=== PATIENT | male | born 1980 | race Hispanic/Latino ===

== ENCOUNTER 2016-09-23 00:27 | Emergency (ER) | payer OTHER ==
[2016-09-23 00:39] VITALS: BP 112/77; PULSE 104; RESP 18; TEMP 98.2; O2SAT 95
[2016-09-23] MEDS ORDERED: Amoxicillin-Clav 875-125 mg Tab PO STA (00:49)
--- NOTE | 2016-09-23 00:52 | C.PDOC ---
History Of Present Illness 35 year old patient presents to the ED complaining of cough, nasal congestion and frontal headache for the past 2 weeks. Patient notes he coughs up green mucus. Patient tried an OTC nasal spray with no relief. Patient denies fever. Time Seen by Provider: 09/23/16 00:44 Chief Complaint (Nursing): Cough, Cold, Congestion History Per: Patient History/Exam Limitations: no limitations Onset/Duration Of Symptoms: Other (2 weeks) Current Symptoms Are (Timing): Still Present Location Of Pain: Headache Sick Contacts (Context): None Associated Symptoms: Cough, Nasal Congestion Ear Symptoms: Bilateral: None Severity: Mild Pain Scale Rating Of: 3 Recent travel outside of the [place]: No Past Medical History Reviewed: Historical Data, Nursing Documentation, Vital Signs Vital Signs: Last Vital Signs Temp 98.2 F 09/23/16 00:36 Pulse 104 H 09/23/16 00:36 Resp 18 09/23/16 00:36 BP 112/77 09/23/16 00:36 Pulse Ox 95 09/23/16 01:15 - Medical History PMH: CHF, Crohn's Disease, HTN, Migraine Surgical History: Pacemaker Family History: States: Unknown Family Hx - Social History Hx Tobacco Use: Yes Hx Alcohol Use: Yes Hx Substance Use: No - Immunization History Hx Tetanus Toxoid Vaccination: No Hx Influenza Vaccination: No Hx Pneumococcal Vaccination: No Review Of Systems Except As Marked, All Systems Reviewed And Found Negative. Constitutional: Negative for: Fever ENT: Positive for: Nose Congestion Respiratory: Positive for: Cough (with green mucus) Neurological: Positive for: Headache (frontal) Physical Exam - Physical Exam Appears: Non-toxic, No Acute Distress Skin: Warm, Dry Head: Atraumatic, Normacephalic Eye(s): bilateral: Normal Inspection Ear(s): Bilateral: Normal Nose: Other (nasal congestion) Oral Mucosa: Moist Throat: Normal, No Erythema Neck: Normal ROM, Supple Chest: Symmetrical Cardiovascular: Rhythm Regular Respiratory: Normal Breath Sounds, No Rales, No Rhonchi, No Wheezing, Other ( speaking in clear sentences) Back: Normal Inspection Extremity: Bilateral: Atraumatic Neurological/Psych: Oriented x3, Normal Speech, Normal Cognition Gait: Steady ED Course And Treatment O2 Sat by Pulse Oximetry: 95 (room air) Pulse Ox Interpretation: Normal Medical Decision Making Medical Decision Making: Impression: 35 y/o with cold-like symptoms Plan: * Sudafed * Augmentin Progress: Patient remained afebrile alert and oriented with stable vital signs during ER evaluation. On re-examination, patient is resting comfortably in no acute distress. Patient reports improvement of symptoms. Disposition Counseled Patient/Family Regarding: Need For Followup, Rx Given - Disposition Disposition: HOME/ ROUTINE Disposition Time: 00:49 Condition: STABLE Additional Instructions: Follow up with your primary medical doctor or clinic in 2-5 days for further evaluation. Take medications as prescribed. Return to the emergency department at any time if symptoms persist or worsen. 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 - Scribe Statement The provider has reviewed the documentation as recorded by the Scribe Oxana Foreman All medical record entries made by the Scribe were at my direction and personally dictated by me. I have reviewed the chart and agree that the record accurately reflects my personal performance of the history, physical exam, medical decision making, and the department course for this patient. I have also personally directed, reviewed, and agree with the discharge instructions and disposition.
[2016-09-23] MEDS ORDERED: Amoxicillin-Clav 875-125 mg Tab PO ONE (00:54)
== END 2016-09-23 01:01 | disposition home or self-care (01) ==
LOC: C.ER 00:27
DX: J32.9 Chronic sinusitis, unspecified (principal); Z72.0 Tobacco use

== ENCOUNTER 2017-02-08 23:50 | Emergency (ER) | payer MEDICAID, OTHER ==
[2017-02-09 00:30] VITALS: O2SAT 98
[2017-02-09] MEDS ORDERED: Albuterol-Ipratrop 3 mg / 0.5 (3 ml) UD IH STA (00:57)
[2017-02-09] MEDS ORDERED: Albuterol-Ipratrop 3 mg / 0.5 (3 ml) UD ONE (01:05)
[2017-02-09 01:30] LABS: BASO # 0.1 K/uL (0.0-0.2); BASO % 0.9 % (0.0-2.0); EOS # 0.6 K/uL (0.0-0.7); EOS % 3.7 % (0.0-4.0); HEMATOCRIT 37.4 % (35.0-51.0); LYMPH # 2.9 K/uL (1.0-4.3); MEAN CELL VOLUME 86.8 fL (80.0-94.0); MEAN CORPUSCULAR HEMOGLOBIN 29.1 pg (27.0-31.0); MEAN CORPUSCULAR HGB CONC 33.5 g/dL (33.0-37.0); MEAN PLATELET VOLUME 8.9 fL (7.2-11.7); MONO # 1.2 K/uL (0.0-0.8); RED CELL DISTRIBUTION WIDTH 13.4 % (11.5-14.5); WHITE BLOOD COUNT 15.4 K/uL (4.8-10.8)
[2017-02-09 01:42] LABS: CHLORIDE 99 mmol/L (98-107); SODIUM 135 mmol/L (132-148)
[2017-02-09 01:43] LABS: POTASSIUM 3.6 mmol/L (3.6-5.2)
[2017-02-09 01:44] LABS: GFR AFRICAN-AMERICAN > 60
[2017-02-09 01:45] LABS: ALB/GLOB RATIO 0.9 (1.0-2.1); ALKALINE PHOSPHATASE 93 U/L (38-126); ALT/SGPT 43 U/L (21-72); AST/SGOT 19 U/L (17-59); BILIRUBIN,TOTAL 0.7 mg/dL (0.2-1.3); BLOOD UREA NITROGEN 12 mg/dL (9-20); CARBON DIOXIDE 26 mmol/L (22-30); GLUCOSE,RANDOM 99 mg/dL (75-110); TOTAL PROTEIN 8.1 g/dL (6.3-8.3)
[2017-02-09 01:46] LABS: CALCIUM 8.8 mg/dl (8.6-10.4)
--- NOTE | 2017-02-09 03:36 | C.PDOC ---
Time Seen by Provider: 02/09/17 00:41 Chief Complaint (Nursing): Cough, Cold, Congestion History Per: Patient Onset/Duration Of Symptoms: Days (about 1 week) Current Symptoms Are (Timing): Still Present Initiating Event: Upper Respiratory Illness Current Respiratory Medications: See Home Med List Severity: Moderate Associated Symptoms: Productive Cough, Ankle/Leg Swelling Recent travel outside of the [place]: No Additional History Per: Prior Records Past Medical History Reviewed: Historical Data, Nursing Documentation, Vital Signs Vital Signs: Last Vital Signs Temp 98 F 02/09/17 02:55 Pulse 91 H 02/09/17 02:55 Resp 16 02/09/17 02:55 BP 110/58 L 02/09/17 02:55 Pulse Ox 98 02/09/17 02:55 - Medical History PMH: CHF, Crohn's Disease, HTN, Migraine Surgical History: Pacemaker Family History: States: Unknown Family Hx - Social History Hx Tobacco Use: Yes Hx Alcohol Use: No Hx Substance Use: No - Immunization History Hx Tetanus Toxoid Vaccination: No Hx Influenza Vaccination: No Hx Pneumococcal Vaccination: No Review Of Systems Except As Marked, All Systems Reviewed And Found Negative. Constitutional: Negative for: Fever ENT: Positive for: Nose Congestion, Throat Pain Cardiovascular: Negative for: Chest Pain Respiratory: Positive for: Cough, Shortness of Breath, Sputum. Negative for: Hemoptysis Gastrointestinal: Negative for: Vomiting, Abdominal Pain Musculoskeletal: Negative for: Neck Pain Skin: Negative for: Rash Neurological: Negative for: Weakness, Numbness, Seizures Physical Exam - Physical Exam Appears: Non-toxic, No Acute Distress Skin: Normal Color, Warm, Dry, No Rash Head: Atraumatic, Normacephalic Eye(s): bilateral: PERRL, EOMI Neck: Normal ROM, Supple Cardiovascular: Rhythm Regular Respiratory: No Accessory Muscle Use, Wheezing (mild scattered) Gastrointestinal/Abdominal: Soft, No Tenderness Back: No CVA Tenderness Extremity: Normal ROM, Pedal Edema, No Calf Tenderness Extremity: Bilateral: Normal Color And Temperature Neurological/Psych: Oriented x3, Normal Motor, Normal Sensation ED Course And Treatment - Laboratory Results Result Diagrams: 02/09/17 01:22 02/09/17 01:22 ECG: Interpreted By Me, Viewed By Me ECG Rhythm: AV Paced, Nonspecific Changes Rate From EC O2 Sat by Pulse Oximetry: 98 Pulse Ox Interpretation: Normal - Radiology CXR: Interpreted by Me, Viewed By Me CXR Interpretation: Yes: No Acute Disease Reassessment Condition: Improved Disposition Counseled Patient/Family Regarding: Studies Performed, Diagnosis, Need For Followup, Rx Given, Smoking Cessation - Disposition Disposition: HOME/ ROUTINE Disposition Time: 03:38 Condition: IMPROVED Additional Instructions: Follow up with your doctor this week for further evaluation and treatment. Return to the ER if you develop fever, shortness of breath, chest pain, worsening of symptoms or if you have any other concerns. Prescriptions: Albuterol HFA [Ventolin HFA 90 mcg/actuation (8 g)] 2 puff IH Q4 PRN #1 unit PRN Reason: Wheezing Azithromycin [Zithromax] 1 dose PO DAILY #1 pkt Instructions: Acute Bronchitis (ED) - Clinical Impression Clinical Impression: Bronchitis
[2017-02-09 03:48] VITALS: BP 116/65; PULSE 84; RESP 18; TEMP 98.4
--- NOTE | 2017-02-09 09:13 | RAD ---
HISTORY: Cough, SOB COMPARISON: 04/13/2016 TECHNIQUE: Chest PA and lateral FINDINGS: LUNGS: No active pulmonary disease. PLEURA: No significant pleural effusion identified. No pneumothorax apparent. CARDIOVASCULAR: AICD. No congestive change. Normal heart size. OSSEOUS STRUCTURES: No significant abnormalities. VISUALIZED UPPER ABDOMEN: Normal. OTHER FINDINGS: None. IMPRESSION: No active disease.
--- NOTE | 2017-02-10 23:02 | CARD ---
APPROVED REPORT EKG Measurement Heart [id number] P51 [id number] <Conclusion> Ventricular-paced rhythm Abnormal ECG
== END 2017-02-09 03:48 | disposition home or self-care (01) ==
LOC: C.ER 23:50
DX: J40 Bronchitis, not specified as acute or chronic (principal); Z72.0 Tobacco use

== ENCOUNTER 2017-08-07 03:48 | Inpatient (IN) | payer OTHER ==
--- NOTE | 2017-08-07 05:04 | C.PDOC ---
Chief Complaint (Nursing): Chest Pain Past Medical History - Medical History PMH: CHF, Crohn's Disease, HTN, Migraine Denies: Chronic Kidney Disease Surgical History: Endoscopy, Pacemaker Family History: States: Unknown Family Hx - Social History Hx Tobacco Use: Yes Hx Alcohol Use: No Hx Substance Use: No - Immunization History Hx Tetanus Toxoid Vaccination: No Hx Influenza Vaccination: No Hx Pneumococcal Vaccination: No Disposition - Disposition
--- NOTE | 2017-08-07 05:09 | C.PDOC ---
History Of Present Illness 36 year old male has a significant past medical history of internal defibrillator/pacemaker since 2015, 2 cardiac caths in the past, reportedly normal coronary, and EF of 20%. Patient presents to us today complaining of acute onset ches pain beginning at midnight. Pain is associated with marked nausea. Denies shortness of breath, no radiation to other parts of the body, edema, calf tenderness, and history of a gromoembolic phenomenon. Chief Complaint (Nursing): Chest Pain History Per: Patient History/Exam Limitations: no limitations Onset/Duration Of Symptoms: Days Current Symptoms Are (Timing): Still Present Associated Symptoms: Nausea Past Medical History Reviewed: Historical Data, Nursing Documentation, Vital Signs Vital Signs: Last Vital Signs Temp 99.8 F H 08/07/17 13:06 Pulse 110 H 08/07/17 15:40 Resp 19 08/07/17 15:00 BP 138/75 08/07/17 17:38 Pulse Ox 98 08/07/17 15:00 - Medical History PMH: CHF, Crohn's Disease, HTN, Migraine Denies: Chronic Kidney Disease Surgical History: Endoscopy, Pacemaker Family History: States: Unknown Family Hx - Social History Hx Tobacco Use: Yes Hx Alcohol Use: No Hx Substance Use: No - Immunization History Hx Tetanus Toxoid Vaccination: No Hx Influenza Vaccination: No Hx Pneumococcal Vaccination: No Review Of Systems Except As Marked, All Systems Reviewed And Found Negative. Gastrointestinal: Positive for: Nausea Physical Exam - Physical Exam Appears: Non-toxic, No Acute Distress Throat: Normal Neck: Supple Chest: No Tenderness, Other (pacemaker device located above the left nipple. ) Cardiovascular: Rhythm Regular Respiratory: Normal Breath Sounds Gastrointestinal/Abdominal: Normal Exam, Bowel Sounds, Soft, No Tenderness Extremity: Normal ROM (x4) Pulses: Left Dorsalis Pedis: Normal (2+), Right Dorsalis Pedis: Normal (2+) Neurological/Psych: Oriented x3, Normal Speech, Normal Cognition, Normal Cranial Nerves, Normal Motor, Normal Sensation, Normal Reflexes Gait: Steady ED Course And Treatment - Laboratory Results Result Diagrams: 08/07/17 05:09 08/07/17 05:09 Medical Decision Making Medical Decision Making: Impressions: Chest pain Differentials include but not limited to ACS, Pulmonary Embolism Time: 0509 Plan: -- CMP -- Drug Screen (Urine) -- D Dimer -- Zofran Inj. (4 mg IVP) --EKG Results: atrial senesing vertricular pacemaker, 100% paced at rate of 115 beats per minute. QRS in a LBBB pattern. No ST/T abnormality Time: 542 Plan: -- Gallbladder US Time: 635 -- Patient is getting ultrasound done. Provider awaiting result Pt with marked WBC elevation,unclear etiology of upper abd/chest pain.Pt will have further w/u including abd CT and repeat enzymes Disposition - Disposition Disposition: HOSPITALIZED Disposition Time: 19:05 Condition: GOOD - Clinical Impression Clinical Impression: Gastric outlet obstruction - Scribe Statement The provider has reviewed the documentation as recorded by the Ange Flores Provider Attestation: All medical record entries made by the Ange were at my direction and personally dictated by me. I have reviewed the chart and agree that the record accurately reflects my personal performance of the history, physical exam, medical decision making, and the department course for this patient. I have also personally directed, reviewed, and agree with the discharge instructions and disposition. Physician Patient Turnover Patient Signed Over To: Jerrell Gallegos DO Handoff Comments: check ct abd/pelvis and make final dispo
[2017-08-07 05:13] LABS: BASO % 0.1 % (0.0-2.0); EOS # 0.2 K/uL (0.0-0.7); EOS % 0.9 % (0.0-4.0); HEMOGLOBIN 13.8 g/dL (12.0-18.0); LYMPH # 1.1 K/uL (1.0-4.3); LYMPH % 4.2 % (20.0-40.0); MEAN CELL VOLUME 86.4 fL (80.0-94.0); MEAN CORPUSCULAR HEMOGLOBIN 29.1 pg (27.0-31.0); MEAN CORPUSCULAR HGB CONC 33.6 g/dL (33.0-37.0); MEAN PLATELET VOLUME 8.1 fL (7.2-11.7); MONO # 1.1 K/uL (0.0-0.8); MONO % 4.6 % (0.0-10.0); NEUT # 22.7 K/uL (1.8-7.0); NEUT % 90.2 % (50.0-75.0); PLATELET COUNT 370 K/uL (130-400); RBC 4.76 Mil/uL (4.40-5.90); RED CELL DISTRIBUTION WIDTH 13.8 % (11.5-14.5); WHITE BLOOD COUNT 25.1 K/uL (4.8-10.8)
[2017-08-07 05:26] LABS: ALBUMIN 4.3 g/dL (3.5-5.0); ALT/SGPT 36 U/L (21-72); AST/SGOT 27 U/L (17-59); BLOOD UREA NITROGEN 15 mg/dL (9-20); CALCIUM 9.1 mg/dl (8.6-10.4); GFR AFRICAN-AMERICAN > 60; GFR NON-AFRICAN AMERICAN > 60
[2017-08-07 06:28] LABS: BANDS 2 % (0-2); LYMPHOCYTE 5 % (20-40); MONOCYTE 6 % (0-10); NEUTROPHIL 87 % (50-75); PLATELET ESTIMATE NORMAL (NORMAL); TOTAL CELLS COUNTED 100
--- NOTE | 2017-08-07 07:02 | US ---
EXAM: US Abdomen Limited, Right Upper Quadrant CLINICAL HISTORY: 36 years old, male; Pain; Other: Chest pain TECHNIQUE: Real-time ultrasound of the right upper quadrant with image documentation. COMPARISON: No relevant prior studies available. FINDINGS: Artifacts: Limited due to bowel gas shadowing. Limited due to shadowing from the ribs. Liver: The liver measures 20 cm. Echogenic fatty liver which is difficult to penetrate. There is hepatic pedal flow in the portal vein. Gallbladder: Partially contracted gallbladder the 2 mm the gallbladder wall.There was no right upper quadrant tenderness during the sonographic examination. Correlation with patient's pain medication status is recommended. No gallstones. Common bile duct: Normal common bile duct measuring 4 mm. Pancreas: The pancreas is not well-seen. Right kidney: The right kidney measures 12.74 x 4.61 x 4.84 cm. No stones. No hydronephrosis. Aorta: The proximal aorta measures 1.6 cm. Limited evaluation of the artery due to shadowing. 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 IMPRESSION: No acute findings.
--- NOTE | 2017-08-07 08:00 | RAD ---
PROCEDURE: CHEST RADIOGRAPH, 1 VIEW HISTORY: chest pain COMPARISON: Chest radiographs 02/09/2017 prior FINDINGS: LUNGS: Diminished inspiratory volume. No definitive infiltrate bilaterally. PLEURA: No pneumothorax or pleural fluid seen. CARDIOVASCULAR: Cardiac silhouette remains normal in size grossly. No pulmonary vascular derangement identified. Permanent cardiac pacemaker/ implanted defibrillator unchanged in appearance. OSSEOUS STRUCTURES: No significant abnormalities. VISUALIZED UPPER ABDOMEN: Normal. OTHER FINDINGS: None. IMPRESSION: Diminished inspiratory volume. No acute infiltrate pleural effusion or pulmonary vascular derangement appreciable. Pacemaker/AICD again noted.
[2017-08-07] MEDS ORDERED: Iodixanol 320 MG/ML 100 ML BOTTLE IV ONE (08:55)
[2017-08-07 09:38] LABS: BARBITURATES, UR NEGATIVE (NEGATIVE); BENZODIAZEPINES, UR NEGATIVE (NEGATIVE); OPIATES, UR NEGATIVE (NEGATIVE); PHENCYCLIDINE, UR NEGATIVE (NEGATIVE)
--- NOTE | 2017-08-07 09:47 | CT ---
PROCEDURE: CT Abdomen and Pelvis with contrast HISTORY: pain COMPARISON: None. TECHNIQUE: Contrast dose: Visipaque 320, 100 cc Radiation dose: Total exam DLP = 1217.43 mGy-cm. This CT exam was performed using one or more of the following dose reduction techniques: Automated exposure control, adjustment of the mA and/or kV according to patient size, and/or use of iterative reconstruction technique. FINDINGS: LOWER THORAX: Limited chronic fibrosis bilateral lung bases as well as dependent atelectasis. Mild cardiomegaly with pacemaker/ AICD leads identified intracardiac once again. LIVER: Hepatomegaly again evident. Further diminished density is seen throughout the liver indicative of recurrent or increased hepatic steatosis diffusely. No focal hepatic mass or intrahepatic biliary dilatation is identified. GALLBLADDER AND BILE DUCTS: A distended gallbladder is appreciate which is otherwise unremarkable appearing. PANCREAS: Unremarkable. No gross lesion or ductal dilatation. SPLEEN: Unremarkable. ADRENALS: Unremarkable. No mass. KIDNEYS AND URETERS: Prior left intrarenal calculus now not identified. No hydronephrosis. No solid mass. VASCULATURE: Unremarkable. No aortic aneurysm. BOWEL: The stomach is distended with retained fluid and food without gross mural thickening evident. Lack oral contrast limits interpretation. Gastroparesis or outlet obstruction is not favored but is not excluded either. The bowel does not appear obstructed a liquified fecal material may indicate diarrhea. Clinically correlate further. No pericolic reaction or fluid collection appreciated throughout. APPENDIX: Normal appendix. PERITONEUM: Unremarkable. No free fluid. No free air. LYMPH NODES: Unremarkable. No enlarged lymph nodes. BLADDER: Urinary bladder is nearly completely decompressed unremarkable appearing grossly. REPRODUCTIVE: Unremarkable. BONES: No acute fracture. OTHER FINDINGS: None. IMPRESSION: 1. Hepatomegaly reiterated as well as likely increased hepatic steatosis diffusely. 2. Distended but otherwise unremarkable gallbladder, similar appearance compared prior abdomen pelvis CT 08/02/2012. No radiodense cholelithiasis, mural thickening or pericholecystic fluid collection related. 3. Prior intrarenal calculus left kidney now not identified. No obstructive uropathy bilaterally or perinephric reaction. 4. Obstructive bowel gas pattern. The stomach is distended with retained fluid and food with outlet obstruction or gastroparesis not favored but not excluded. Liquid fecal material an occasional cyst large-bowel loops may indicate diarrhea. Clinically correlate.
--- NOTE | 2017-08-07 11:14 | CP.PCM.CON ---
History of Present Illness - History of Present Illness History of Present Illness: General Surgery - Dr. Ramirez 36M w/ hx of HTN, systolic CHF s/p AICD-PM with 20% EF, and Ulcerative colitis, presenting with epigastric pain since midnight last night. Pt states the pain began suddenly around midnight and described as a sharp/burning pain in the epigastric region with associated nausea and an "uneasy" feeling that he relates to his heart racing. He states this morning he had a large episode of diarrhea and felt some relief of the pain. He denies any vomiting, fevers, chills, shortness of breathe. PMH: HTN, CHF, UC PSH: AICD-PM, cardiac cath Meds as per chart NKDA Surgery consulted for gastric distension seen on CT. Review of Systems - Review of Systems All systems: reviewed and no additional remarkable complaints except (as per HPI ) Past Patient History - Infectious Disease Hx of Infectious Diseases: None - Past Medical History & Family History Past Medical History?: Yes - Past Social History Smoking Status: Former Smoker - CARDIAC Hx Congestive Heart Failure: Yes Hx Hypertension: Yes Hx Pacemaker: Yes - PULMONARY Hx Respiratory Disorders: No - NEUROLOGICAL Hx Migraine: Yes - HEENT Hx HEENT Problems: No - RENAL Hx Chronic Kidney Disease: No - ENDOCRINE/METABOLIC Hx Endocrine Disorders: No - HEMATOLOGICAL/ONCOLOGICAL Hx Blood Disorders: No - INTEGUMENTARY Hx Dermatological Problems: No - MUSCULOSKELETAL/RHEUMATOLOGICAL Hx Musculoskeletal Disorders: No Hx Falls: No - GASTROINTESTINAL Hx Crohn's Disease: Yes - GENITOURINARY/GYNECOLOGICAL Hx Genitourinary Disorders: No - PSYCHIATRIC Hx Substance Use: No - SURGICAL HISTORY Hx Surgeries: Yes Hx Cardiac Catheterization: Yes Hx Orthopedic Surgery: Yes (deep laceration at age 21 yo) - ANESTHESIA Hx Anesthesia: Yes Hx Anesthesia Reactions: No Meds Allergies/Adverse Reactions: Allergies Allergy/AdvReac Type Severity Reaction Status Date / Time No Known Allergies Allergy Verified 08/07/17 04:13 Physical Exam - Constitutional Appears: No Acute Distress - Head Exam Head Exam: ATRAUMATIC, NORMAL INSPECTION, NORMOCEPHALIC - Eye Exam Eye Exam: Normal appearance - Respiratory Exam Respiratory Exam: NORMAL BREATHING PATTERN. absent: Respiratory Distress - Cardiovascular Exam Cardiovascular Exam: Tachycardia - GI/Abdominal Exam GI & Abdominal Exam: Distended, Soft. absent: Firm, Guarding, Rebound, Rigid, Tenderness - Neurological Exam Neurological exam: Alert, Oriented x3 - Psychiatric Exam Psychiatric exam: Normal Affect, Normal Mood - Skin Skin Exam: Dry, Intact Results - Vital Signs Recent Vital Signs: Last Vital Signs Temp 99.5 F 08/07/17 10:32 Pulse 122 H 08/07/17 10:32 Resp 19 08/07/17 10:32 BP 127/66 08/07/17 10:32 Pulse Ox 97 08/07/17 10:32 - Labs Result Diagrams: 08/07/17 05:09 08/07/17 05:09 Labs: Laboratory Results - last 24 hr 08/07/17 08/07/17 08/07/17 05:03 05:03 05:09 WBC 25.1 H D RBC 4.76 Hgb 13.8 Hct 41.2 MCV 86.4 MCH 29.1 MCHC 33.6 RDW 13.8 Plt Count 370 MPV 8.1 Neut % (Auto) 90.2 H Lymph % (Auto) 4.2 L Amelia % (Auto) 4.6 Eos % (Auto) 0.9 Baso % (Auto) 0.1 Neut # (Auto) 22.7 H Lymph # (Auto) 1.1 Amelia # (Auto) 1.1 H Eos # (Auto) 0.2 Baso # (Auto) 0.0 Neutrophils % (Manual) 87 H Band Neutrophils % 2 Lymphocytes % (Manual) 5 L Monocytes % (Manual) 6 Platelet Estimate Normal D-Dimer, Quantitative 238 Sodium Potassium Chloride Carbon Dioxide Anion Gap BUN Creatinine Est GFR ( Amer) Est GFR (Non-Af Amer) Random Glucose Calcium Total Bilirubin AST ALT Alkaline Phosphatase Troponin I Total Protein Albumin Globulin Albumin/Globulin Ratio Urine Opiates Screen Negative Urine Methadone Screen Negative Ur Barbiturates Screen Negative Ur Phencyclidine Scrn Negative Ur Amphetamines Screen Negative U Benzodiazepines Scrn Negative U Oth Cocaine Metabols Negative U Cannabinoids Screen Negative 08/07/17 08/07/17 05:09 08:34 WBC RBC Hgb Hct MCV MCH MCHC RDW Plt Count MPV Neut % (Auto) Lymph % (Auto) Amelia % (Auto) Eos % (Auto) Baso % (Auto) Neut # (Auto) Lymph # (Auto) Amelia # (Auto) Eos # (Auto) Baso # (Auto) Neutrophils % (Manual) Band Neutrophils % Lymphocytes % (Manual) Monocytes % (Manual) Platelet Estimate D-Dimer, Quantitative Sodium 141 Potassium 3.7 Chloride 97 L Carbon Dioxide 27 Anion Gap 21 H BUN 15 Creatinine 0.9 Est GFR ( Amer) > 60 Est GFR (Non-Af Amer) > 60 Random Glucose 123 H Calcium 9.1 Total Bilirubin 1.0 AST 27 ALT 36 Alkaline Phosphatase 116 Troponin I < 0.0120 < 0.0120 Total Protein 8.6 H Albumin 4.3 Globulin 4.3 H Albumin/Globulin Ratio 1.0 Urine Opiates Screen Urine Methadone Screen Ur Barbiturates Screen Ur Phencyclidine Scrn Ur Amphetamines Screen U Benzodiazepines Scrn U Oth Cocaine Metabols U Cannabinoids Screen Assessment & Plan - Assessment and Plan (Free Text) Assessment: 36 yo M w/ hx UC, CHF with AICD-PM, with sudden onset epigastric pain -Agree with admission to Medical team -Recc Cardiac consult for poss. cardiac source of pain -CT reviewed - some gastric distention with food -Monitor for vomiting, will place NGT if needed -Recc. GI consult to eval for any outlet obstruction and given hx of IBD -No surgical intervention at this time NIKKI Ramirez
[2017-08-07] MEDS ORDERED: Piperacill/Tazo 4.5gm in Dex 4.5 GM/100 ML BAG IVPB SCH (11:45)
[2017-08-07] MEDS ORDERED: Piperacillin/Tazobact 3.375 gm 100 ML IVPB ONE (12:04)
[2017-08-07 12:28] LABS: LIPASE 31 U/L (23-300)
--- NOTE | 2017-08-07 12:29 | CP.PCM.HP ---
<Jerrell Martinez - Last Filed: 08/07/17 13:23> History of Present Illness - History of Present Illness History of Present Illness: HPI: Patient is a 36M with a PMH of UC and HF with AICD who comes to the ED with a chief complaint of palpitations. States last night around 11 he started to feel palpitations and weakness so he came to the ED BIBA. He states that it feels like he is running but he is laying down. Nothing made it better or worse. Describes the feeling like his heart is racing. Denies any radiation. It has been constant since it started. He has not ever had a feeling like this in his chest. He is also complaining of nausea but he said he has this feeling often and after he has a BM he feels better. Today in the ED his nausea is improving and he had one episode of non bloody diarrhea. States that every time he goes to see his PMD and they check his blood it always has a WBC count of 20 since 2016. [employer] is a group at [facility]. See Dr. Melton for his UC. I spoke with Dr. Contreras who will come evaluate the patient I called Mippin who will evaluate the AICD PMH: UC, HF, AICD PSH: AICD FH: unremarkable SH: denies drinking, smoking, drug use All: None Present on Admission - Present on Admission Any Indicators Present on Admission: No Review of Systems - Review of Systems Review of Systems: per hpi Past Patient History - Infectious Disease Hx of Infectious Diseases: None - Past Medical History & Family History Past Medical History?: Yes - Past Social History Smoking Status: Former Smoker - CARDIAC Hx Congestive Heart Failure: Yes Hx Hypertension: Yes Hx Pacemaker: Yes - PULMONARY Hx Respiratory Disorders: No - NEUROLOGICAL Hx Migraine: Yes - HEENT Hx HEENT Problems: No - RENAL Hx Chronic Kidney Disease: No - ENDOCRINE/METABOLIC Hx Endocrine Disorders: No - HEMATOLOGICAL/ONCOLOGICAL Hx Blood Disorders: No - INTEGUMENTARY Hx Dermatological Problems: No - MUSCULOSKELETAL/RHEUMATOLOGICAL Hx Musculoskeletal Disorders: No Hx Falls: No - GASTROINTESTINAL Hx Crohn's Disease: Yes - GENITOURINARY/GYNECOLOGICAL Hx Genitourinary Disorders: No - PSYCHIATRIC Hx Substance Use: No - SURGICAL HISTORY Hx Surgeries: Yes Hx Cardiac Catheterization: Yes Hx Orthopedic Surgery: Yes (deep laceration at age 21 yo) - ANESTHESIA Hx Anesthesia: Yes Hx Anesthesia Reactions: No Meds Allergies/Adverse Reactions: Allergies Allergy/AdvReac Type Severity Reaction Status Date / Time No Known Allergies Allergy Verified 08/07/17 04:13 Physical Exam - Constitutional Appears: Well - Head Exam Head Exam: ATRAUMATIC, NORMAL INSPECTION, NORMOCEPHALIC - Eye Exam Eye Exam: EOMI, Normal appearance, PERRL Pupil Exam: NORMAL ACCOMODATION, PERRL - ENT Exam ENT Exam: Mucous Membranes Moist, Normal Exam - Neck Exam Neck exam: Positive for: Normal Inspection - Respiratory Exam Respiratory Exam: Clear to Auscultation Bilateral, NORMAL BREATHING PATTERN - Cardiovascular Exam Cardiovascular Exam: Tachycardia, REGULAR RHYTHM - GI/Abdominal Exam GI & Abdominal Exam: Normal Bowel Sounds, Soft. absent: Tenderness - Rectal Exam Rectal Exam: NORMAL INSPECTION - Exam Exam: Circumcision, NORMAL INSPECTION External exam: NORMAL EXTERNAL EXAM Speculum exam: NORMAL SPECULUM EXAM Bimanual exam: NORMAL BIMANUAL EXAM - Extremities Exam Extremities exam: Positive for: normal inspection - Back Exam Back exam: NORMAL INSPECTION - Neurological Exam Neurological exam: Alert, CN II-XII Intact, Normal Gait, Oriented x3, Reflexes Normal - Psychiatric Exam Psychiatric exam: Normal Affect, Normal Mood - Skin Skin Exam: Dry, Intact, Normal Color, Warm Results - Vital Signs Recent Vital Signs: Last Vital Signs Temp 99.5 F 08/07/17 10:32 Pulse 122 H 08/07/17 10:32 Resp 19 08/07/17 10:32 BP 127/66 08/07/17 10:32 Pulse Ox 97 08/07/17 10:32 - Labs Result Diagrams: 08/07/17 05:09 08/07/17 05:09 Labs: Laboratory Results - last 24 hr 08/07/17 08/07/17 08/07/17 05:03 05:03 05:09 WBC 25.1 H D RBC 4.76 Hgb 13.8 Hct 41.2 MCV 86.4 MCH 29.1 MCHC 33.6 RDW 13.8 Plt Count 370 MPV 8.1 Neut % (Auto) 90.2 H Lymph % (Auto) 4.2 L Wise % (Auto) 4.6 Eos % (Auto) 0.9 Baso % (Auto) 0.1 Neut # (Auto) 22.7 H Lymph # (Auto) 1.1 Wise # (Auto) 1.1 H Eos # (Auto) 0.2 Baso # (Auto) 0.0 Neutrophils % (Manual) 87 H Band Neutrophils % 2 Lymphocytes % (Manual) 5 L Monocytes % (Manual) 6 Platelet Estimate Normal D-Dimer, Quantitative 238 Sodium Potassium Chloride Carbon Dioxide Anion Gap BUN Creatinine Est GFR ( Amer) Est GFR (Non-Af Amer) Random Glucose Calcium Total Bilirubin AST ALT Alkaline Phosphatase Troponin I Total Protein Albumin Globulin Albumin/Globulin Ratio Urine Opiates Screen Negative Urine Methadone Screen Negative Ur Barbiturates Screen Negative Ur Phencyclidine Scrn Negative Ur Amphetamines Screen Negative U Benzodiazepines Scrn Negative U Oth Cocaine Metabols Negative U Cannabinoids Screen Negative 08/07/17 08/07/17 05:09 08:34 WBC RBC Hgb Hct MCV MCH MCHC RDW Plt Count MPV Neut % (Auto) Lymph % (Auto) Wise % (Auto) Eos % (Auto) Baso % (Auto) Neut # (Auto) Lymph # (Auto) Wise # (Auto) Eos # (Auto) Baso # (Auto) Neutrophils % (Manual) Band Neutrophils % Lymphocytes % (Manual) Monocytes % (Manual) Platelet Estimate D-Dimer, Quantitative Sodium 141 Potassium 3.7 Chloride 97 L Carbon Dioxide 27 Anion Gap 21 H BUN 15 Creatinine 0.9 Est GFR ( Amer) > 60 Est GFR (Non-Af Amer) > 60 Random Glucose 123 H Calcium 9.1 Total Bilirubin 1.0 AST 27 ALT 36 Alkaline Phosphatase 116 Troponin I < 0.0120 < 0.0120 Total Protein 8.6 H Albumin 4.3 Globulin 4.3 H Albumin/Globulin Ratio 1.0 Urine Opiates Screen Urine Methadone Screen Ur Barbiturates Screen Ur Phencyclidine Scrn Ur Amphetamines Screen U Benzodiazepines Scrn U Oth Cocaine Metabols U Cannabinoids Screen Assessment & Plan (1) Palpitations Assessment and Plan: Cardio (Ben) - will come evaluate the patient, follow up [facility] Mippin contacted to [facility] f/u ekg/zoey tsh repeat echo Status: Acute (2) Heart failure Assessment and Plan: Patient reports last echo within one year had EF of 40-45 improved from 20% coreg 25 PO BID Ezetimibe 10 PO QD Entresto 97-103 PO BID Aldactone 25 PO QD Demadex 40 PO BID Status: Acute (3) Ulcerative colitis Assessment and Plan: presented with nausea, no vomiting. states he feels much better after bm Dr. Melton is his GI but he hasnt followed up in years takes no meds for his UC Has a WBC of 25 with left shift will treat with zosyn as well as vanco x1 Pepcid 20 IV Q12 zofran 4mg Q6 F/U Blood cultures Status: Chronic (4) HTN (hypertension) Assessment and Plan: Hydralazine 50 PO BID Status: Acute (5) Prophylactic measure Assessment and Plan: liquid diet lovenox 30 sc QD SCD Status: Acute <Roel Banerjee H - Last Filed: 08/07/17 16:05> Results - Vital Signs Recent Vital Signs: Last Vital Signs Temp 99.8 F H 08/07/17 13:06 Pulse 110 H 08/07/17 15:40 Resp 19 08/07/17 15:00 BP 138/88 08/07/17 15:00 Pulse Ox 98 08/07/17 15:00 - Labs Result Diagrams: 08/07/17 05:09 08/07/17 05:09 Labs: Laboratory Results - last 24 hr 08/07/17 08/07/17 08/07/17 05:03 05:03 05:09 WBC 25.1 H D RBC 4.76 Hgb 13.8 Hct 41.2 MCV 86.4 MCH 29.1 MCHC 33.6 RDW 13.8 Plt Count 370 MPV 8.1 Neut % (Auto) 90.2 H Lymph % (Auto) 4.2 L Wise % (Auto) 4.6 Eos % (Auto) 0.9 Baso % (Auto) 0.1 Neut # (Auto) 22.7 H Lymph # (Auto) 1.1 Wise # (Auto) 1.1 H Eos # (Auto) 0.2 Baso # (Auto) 0.0 Neutrophils % (Manual) 87 H Band Neutrophils % 2 Lymphocytes % (Manual) 5 L Monocytes % (Manual) 6 Platelet Estimate Normal D-Dimer, Quantitative 238 Sodium Potassium Chloride Carbon Dioxide Anion Gap BUN Creatinine Est GFR ( Amer) Est GFR (Non-Af Amer) Random Glucose Calcium Total Bilirubin AST ALT Alkaline Phosphatase Total Creatine Kinase CK-MB (Mass) Troponin I Total Protein Albumin Globulin Albumin/Globulin Ratio Lipase TSH 3rd Generation Urine Opiates Screen Negative Urine Methadone Screen Negative Ur Barbiturates Screen Negative Ur Phencyclidine Scrn Negative Ur Amphetamines Screen Negative U Benzodiazepines Scrn Negative U Oth Cocaine Metabols Negative U Cannabinoids Screen Negative 08/07/17 08/07/17 08/07/17 05:09 08:34 14:27 WBC RBC Hgb Hct MCV MCH MCHC RDW Plt Count MPV Neut % (Auto) Lymph % (Auto) Wise % (Auto) Eos % (Auto) Baso % (Auto) Neut # (Auto) Lymph # (Auto) Wise # (Auto) Eos # (Auto) Baso # (Auto) Neutrophils % (Manual) Band Neutrophils % Lymphocytes % (Manual) Monocytes % (Manual) Platelet Estimate D-Dimer, Quantitative Sodium 141 Potassium 3.7 Chloride 97 L Carbon Dioxide 27 Anion Gap 21 H BUN 15 Creatinine 0.9 Est GFR ( Amer) > 60 Est GFR (Non-Af Amer) > 60 Random Glucose 123 H Calcium 9.1 Total Bilirubin 1.0 AST 27 ALT 36 Alkaline Phosphatase 116 Total Creatine Kinase 71 CK-MB (Mass) < 0.22 Troponin I < 0.0120 < 0.0120 < 0.0120 Total Protein 8.6 H Albumin 4.3 Globulin 4.3 H Albumin/Globulin Ratio 1.0 Lipase 31 TSH 3rd Generation 0.90 Urine Opiates Screen Urine Methadone Screen Ur Barbiturates Screen Ur Phencyclidine Scrn Ur Amphetamines Screen U Benzodiazepines Scrn U Oth Cocaine Metabols U Cannabinoids Screen Attending/Attestation - Attestation I have personally seen and examined this patient.: Yes I have fully participated in the care of the patient.: Yes I have reviewed all pertinent clinical information: Yes Notes (Text): 08/07/17 15:56 Medical attending: Patient was seen and examined by me. Agree with the above note by the resident. The patient just before I saw him in the ER reported that the IV Zofran as well as him having a BM - he reported great relief and also much less pain now. When we spoke about his lab work, in particular the WBC count, he explained that it has been chronically high since 2014 he beleives. Per discussion with other family member over the phone - it was never this way when he was younger. He does not take anything like predinisone for his UC which could cause a high WBC and he reports not taking any immunomodify drug for his UC which could make him more prone to infection. For now will give a x 1 dose of vancomycin and also IV Zosyn Q 6hrs. Meanwhile we also spoke about the patient's tachycardia. It may very well be that he is sepsis. Blood cultures have already been taken. This being said the patient does have a pacer / AICD device placed in 2016 and on the 12 leads it does appear as if it is capturing and pacing him. We will need a cardiology evaluation. 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 He does seem to be a relatively good historian. thank you Roel Banerjee
[2017-08-07 15:00] LABS: CK-MB < 0.22 ng/mL (0.0-3.38)
[2017-08-07] MEDS: Piperacill/Tazo 3.375gm in Dex 3.375 GM/50 ML BAG IVPB SCH ×2 (16:32→23:32)
[2017-08-07] MEDS ORDERED: Vancomycin 1 gm/NS 200 ml 1 GM/200 ML BAG IVPB ONE (17:00)
[2017-08-07] MEDS: Sacubitril/Valsartan 49-51 Tab PO SCH (18:14)
--- NOTE | 2017-08-07 20:07 | CP.PCM.CON ---
History of Present Illness - History of Present Illness History of Present Illness: Reason for consultation: Tachycardia and palpitation HPI 36 year old male with past medical history of non ischemic cardiomyopathy, S/P AICD implant, ulcerative colitis admitted to [facility] for flare of colitis. Upon speaking with the patient he complained of experiencing palpitations. On quality assurance monitor body patient heart rate was in 130's and also with paced rhythm. Cardiology consult for potential pacemaker malfunction. On my interview with the pt, he denied any chest pain, dizziness, shortness of breath. Review of Systems - Constitutional Constitutional: Fatigue, Weakness - EENT Eyes: absent: As Per HPI, Blind Spots, Blurred Vision, Change in Vision, Decreased Night Vision, Diplopia, Discharge, Dry Eye, Exophthalmos, Floaters, Irritation, Itchy Eyes, Loss of Peripheral Vision, Pain, Photophobia, Requires Corrective Lenses, Sees Flashes, Spots in Vision, Tunnel Vision, Other Visual Disturbances, Loss of Vision, Other Ears: absent: As Per HPI, Decreased Hearing, Ear Discharge, Ear Pain, Tinnitus, Abnormal Hearing, Disequilibrium, Dizziness, Other Nose/Mouth/Throat: absent: As Per HPI, Epistaxis, Nasal Congestion, Nasal Discharge, Nasal Obstruction, Nasal Trauma, Nose Pain, Post Nasal Drip, Sinus Pain, Sinus Pressure, Bleeding Gums, Change in Voice, Dental Pain, Dry Mouth, Dysphagia, Halitosis, Hoarsness, Lip Swelling, Mouth Lesions, Mouth Pain, Odynophagia, Sore Throat, Throat Swelling, Tongue Swelling, Facial Pain, Neck Pain, Neck Mass, Other - Cardiovascular Cardiovascular: Palpitations - Respiratory Respiratory: absent: As Per HPI, Cough, Dyspnea, Hemoptysis, Dyspnea on Exertion , Wheezing, Snoring, Stridor, Pain on Inspiration, Chest Congestion, Excessive Mucous Production, Change in Mucous Color, Pain with Coughing, Other - Gastrointestinal Gastrointestinal: Abdominal Pain, Bloating, Diarrhea - Genitourinary Genitourinary: absent: As Per HPI, Change in Urinary Stream, Difficulty Urinating, Dysuria, Flank Pain, Hematuria, Pyuria, Nocturia, Urinary Incontinence, Urinary Frequency, Urinary Hesitance, Urinary Urgency, Voiding Freq/Small Amts, Freq UTI, Hx Renal/Bladder Calculi, Hx /Renal Surgery, Bladder Distension, Other - Musculoskeletal Musculoskeletal: Muscle Cramps - Integumentary Integumentary: absent: As Per HPI, Acne, Alopecia, Bleeding Lesions, Change in Hair, Change in Nails, Change in Pigmentation, Changing Lesions, Dry Skin, Erythema, Furuncle, Hirsutism, Lesions, New Lesions, Non-Healing Lesions, Photosensitivity, Pruritus, Rash, Skin Pain, Skin Ulcer, Sores, Striae, Swelling , Unusual Bruising, Wounds, Jaundice, Other - Neurological Neurological: absent: As Per HPI, Abnormal Gait, Abnormal Hearing, Abnormal Movements, Abnormal Speech, Behavioral Changes, Burning Sensations, Confusion, Convulsions, Disequilibrium, Dizziness, Numbness, Focal Weakness, Frequent Falls , Headaches, Lack of Coordination, Loss of Vision, Memory Loss, Paresthesias, Radicular Pain, Restless Legs, Sensory Deficit, Syncope, Tingling, Tremor, Vertigo, Weakness, Other Visual Disturbances, Other - Psychiatric Psychiatric: absent: As Per HPI, Abnormal Sleep Pattern, Anhedonia, Anxiety, Auditory Hallucinations, Behavioral Changes, Change in Appetite, Change in Libido, Confusion, Depression, Difficulty Concentrating, Hallucinations, Homicidal Ideation, Hopelessness, Irritability, Memory Loss, Mood Swings, Panic Attacks, Paranoia, Suicidal Ideation, Visual Hallucinations, Tactile Hallucinations, Other - Endocrine Endocrine: absent: As Per HPI, Change in Body Appearance, Change in Libido, Cold Intolorance, Deepening of Voice, Excessive Sweating, Fatigue, Flushing, Heat Intolorance, Increase in Ring/Shoe/Hat Size, Palpitations, Polydipsia, Polyphagia, Polyuria, Other - Hematologic/Lymphatic Hematologic: absent: As Per HPI, Easy Bleeding, Easy Bruising, Lymphadenopathy, Other Past Patient History - Infectious Disease Hx of Infectious Diseases: None - Past Medical History & Family History Past Medical History?: Yes - Past Social History Smoking Status: Former Smoker - CARDIAC Hx Congestive Heart Failure: Yes (s/p AICD implant) Hx Hypertension: Yes Hx Pacemaker: Yes - PULMONARY Hx Respiratory Disorders: No - NEUROLOGICAL Hx Migraine: Yes - HEENT Hx HEENT Problems: No - RENAL Hx Chronic Kidney Disease: No - ENDOCRINE/METABOLIC Hx Endocrine Disorders: No - HEMATOLOGICAL/ONCOLOGICAL Hx Blood Disorders: No - INTEGUMENTARY Hx Dermatological Problems: No - MUSCULOSKELETAL/RHEUMATOLOGICAL Hx Musculoskeletal Disorders: No Hx Falls: No - GASTROINTESTINAL Hx Crohn's Disease: Yes - GENITOURINARY/GYNECOLOGICAL Hx Genitourinary Disorders: No - PSYCHIATRIC Hx Substance Use: No - SURGICAL HISTORY Hx Surgeries: Yes Hx Cardiac Catheterization: Yes Hx Orthopedic Surgery: Yes (deep laceration at age 21 yo) - ANESTHESIA Hx Anesthesia: Yes Hx Anesthesia Reactions: No Meds Allergies/Adverse Reactions: Allergies Allergy/AdvReac Type Severity Reaction Status Date / Time No Known Allergies Allergy Verified 08/07/17 04:13 - Medications Medications: Current Medications Carvedilol (Coreg) 25 mg PO BID [facility] Last Admin: 08/07/17 17:38 Dose: 25 mg Ezetimibe (Zetia) 10 mg PO [facility] Enoxaparin Sodium (Lovenox) 30 mg SC DAILY [facility] Famotidine (Pepcid) 20 mg PO BID [facility] Last Admin: 08/07/17 17:38 Dose: 20 mg Hydralazine HCl (Apresoline) 50 mg PO BID [facility] Last Admin: 08/07/17 17:38 Dose: 50 mg Piperacillin Sod/Tazobactam Sod (Zosyn 3.375 Gm Iv Premix) 3.375 gm in 50 mls @ 200 mls/hr IVPB Q8H [facility] PRN Reason: Protocol Last Admin: 08/07/17 16:32 Dose: 200 mls/hr Ondansetron HCl (Zofran Inj) 4 mg IVP Q6H [facility] Last Admin: 08/07/17 13:59 Dose: 4 mg Sacubitril/Valsartan (Entresto 49 Mg-51 Mg) 2 tab PO BID [facility] Last Admin: 08/07/17 18:14 Dose: 2 tab Spironolactone (Aldactone) 25 mg PO DAILY [facility] Torsemide (Demadex) 40 mg PO BID [facility] Last Admin: 08/07/17 18:14 Dose: 40 mg Physical Exam - Constitutional Appears: Non-toxic - Head Exam Head Exam: ATRAUMATIC - Eye Exam Eye Exam: EOMI, Normal appearance - ENT Exam ENT Exam: Mucous Membranes Moist - Neck Exam Neck exam: Positive for: Normal Inspection - Respiratory Exam Respiratory Exam: Clear to Auscultation Bilateral, NORMAL BREATHING PATTERN - Cardiovascular Exam Cardiovascular Exam: Tachycardia, REGULAR RHYTHM, +S1, +S2 Additional comments: paced - GI/Abdominal Exam GI & Abdominal Exam: Normal Bowel Sounds - Extremities Exam Extremities exam: Positive for: full ROM - Neurological Exam Neurological exam: Alert, CN II-XII Intact - Skin Skin Exam: Dry, Warm Results - Vital Signs Recent Vital Signs: Last Vital Signs Temp 99.8 F H 08/07/17 13:06 Pulse 110 H 08/07/17 15:40 Resp 19 08/07/17 15:00 BP 138/75 08/07/17 17:38 Pulse Ox 98 08/07/17 15:00 - Labs Result Diagrams: 08/07/17 05:09 08/07/17 05:09 Labs: Laboratory Results - last 24 hr 08/07/17 08/07/17 08/07/17 05:03 05:03 05:09 WBC 25.1 H D RBC 4.76 Hgb 13.8 Hct 41.2 MCV 86.4 MCH 29.1 MCHC 33.6 RDW 13.8 Plt Count 370 MPV 8.1 Neut % (Auto) 90.2 H Lymph % (Auto) 4.2 L Leon % (Auto) 4.6 Eos % (Auto) 0.9 Baso % (Auto) 0.1 Neut # (Auto) 22.7 H Lymph # (Auto) 1.1 Leon # (Auto) 1.1 H Eos # (Auto) 0.2 Baso # (Auto) 0.0 Neutrophils % (Manual) 87 H Band Neutrophils % 2 Lymphocytes % (Manual) 5 L Monocytes % (Manual) 6 Platelet Estimate Normal D-Dimer, Quantitative 238 Sodium Potassium Chloride Carbon Dioxide Anion Gap BUN Creatinine Est GFR ( Amer) Est GFR (Non-Af Amer) Random Glucose Calcium Total Bilirubin AST ALT Alkaline Phosphatase Total Creatine Kinase CK-MB (Mass) Troponin I Total Protein Albumin Globulin Albumin/Globulin Ratio Lipase TSH 3rd Generation Urine Opiates Screen Negative Urine Methadone Screen Negative Ur Barbiturates Screen Negative Ur Phencyclidine Scrn Negative Ur Amphetamines Screen Negative U Benzodiazepines Scrn Negative U Oth Cocaine Metabols Negative U Cannabinoids Screen Negative 08/07/17 08/07/17 08/07/17 05:09 08:34 14:27 WBC RBC Hgb Hct MCV MCH MCHC RDW Plt Count MPV Neut % (Auto) Lymph % (Auto) Leon % (Auto) Eos % (Auto) Baso % (Auto) Neut # (Auto) Lymph # (Auto) Leon # (Auto) Eos # (Auto) Baso # (Auto) Neutrophils % (Manual) Band Neutrophils % Lymphocytes % (Manual) Monocytes % (Manual) Platelet Estimate D-Dimer, Quantitative Sodium 141 Potassium 3.7 Chloride 97 L Carbon Dioxide 27 Anion Gap 21 H BUN 15 Creatinine 0.9 Est GFR ( Amer) > 60 Est GFR (Non-Af Amer) > 60 Random Glucose 123 H Calcium 9.1 Total Bilirubin 1.0 AST 27 ALT 36 Alkaline Phosphatase 116 Total Creatine Kinase 71 CK-MB (Mass) < 0.22 Troponin I < 0.0120 < 0.0120 < 0.0120 Total Protein 8.6 H Albumin 4.3 Globulin 4.3 H Albumin/Globulin Ratio 1.0 Lipase 31 TSH 3rd Generation 0.90 Urine Opiates Screen Urine Methadone Screen Ur Barbiturates Screen Ur Phencyclidine Scrn Ur Amphetamines Screen U Benzodiazepines Scrn U Oth Cocaine Metabols U Cannabinoids Screen Assessment & Plan - Assessment and Plan (Free Text) Assessment: Assessment: 1. Tachycardia and palpitation Tachycardia secondary to demand pacing. 2. Chronic systolic CHF S/P ICD 3.Colitis Plan: Tachycardia secondary to demand pacing.However will interrogate ICD device. Chronic systolic CHF-Monitor I & O, Avoid fluid overload Echo in AM.
[2017-08-08] MEDS ORDERED: Aluminum Hydroxide/Magnesium Hydroxide Susp (30 mL) PO ONE (06:06)
[2017-08-08 07:35] LABS: BASO % 0.3 % (0.0-2.0); EOS % 0.1 % (0.0-4.0); HEMOGLOBIN 12.6 g/dL (12.0-18.0); LYMPH # 1.3 K/uL (1.0-4.3); LYMPH % 11.7 % (20.0-40.0); MEAN CELL VOLUME 86.2 fL (80.0-94.0); MEAN CORPUSCULAR HEMOGLOBIN 29.7 pg (27.0-31.0); MEAN CORPUSCULAR HGB CONC 34.4 g/dL (33.0-37.0); MEAN PLATELET VOLUME 8.3 fL (7.2-11.7); MONO # 0.8 K/uL (0.0-0.8); MONO % 7.8 % (0.0-10.0); NEUT # 8.7 K/uL (1.8-7.0); NEUT % 80.1 % (50.0-75.0); RBC 4.24 Mil/uL (4.40-5.90)
[2017-08-08 08:05] LABS: WHITE BLOOD COUNT 10.8 K/uL (4.8-10.8)
[2017-08-08 08:18] LABS: ALB/GLOB RATIO 1.1 (1.0-2.1); ALBUMIN 3.9 g/dL (3.5-5.0); ALT/SGPT 28 U/L (21-72); AST/SGOT 27 U/L (17-59); BLOOD UREA NITROGEN 14 mg/dL (9-20); GFR AFRICAN-AMERICAN > 60; GFR NON-AFRICAN AMERICAN > 60
[2017-08-08] MEDS: Piperacill/Tazo 3.375gm in Dex 3.375 GM/50 ML BAG IVPB SCH ×3 (08:26→23:53)
[2017-08-08] MEDS ORDERED: Potassium Chloride 20 mEq ER Tab PO STA (08:51)
[2017-08-08] MEDS: Enoxaparin 30 mg Syringe SC SCH (09:34)
[2017-08-08] MEDS: Sacubitril/Valsartan 49-51 Tab PO SCH ×2 (09:35→17:29)
[2017-08-08] MEDS ORDERED: Magnesium Sulfate 1 gm in D5W 1 GM/100 ML BAG IVPB ONE ×3 (10:00→15:00)
[2017-08-08] MEDS: MethylPREDNISolone 40 mg Vial IVP SCH ×3 (11:12→21:33)
[2017-08-08] MEDS: metroNIDAZOLE IV 500 mg/100 ml 500 MG/100 ML BAG IVPB SCH ×2 (13:33→21:33)
--- NOTE | 2017-08-08 13:41 | CP.PCM.PN ---
<Trena Ledezma - Last Filed: 08/08/17 13:38> Subjective - Date & Time of Evaluation Date of Evaluation: 08/08/17 Time of Evaluation: 07:00 - Subjective Subjective: PGY1- Medicine Note Patient seen and examined at bedside in no acute distress. Patient is very weak and tired and says he has had 20 episodes of watery diarrhea in the past day. Patient has some nausea, but denies vomiting. Patient denies chest pain or palpitations today. Patient has mild abdominal pain. Objective - Vital Signs/Intake and Output Vital Signs (last 24 hours): Temp Pulse Resp BP Pulse Ox 98.7 F 96 H 20 117/71 95 08/08/17 11:11 08/08/17 07:20 08/08/17 07:00 08/08/17 09:39 08/08/17 07:00 - Medications Medications: Current Medications Carvedilol (Coreg) 25 mg PO BID [facility] Last Admin: 08/08/17 09:39 Dose: 25 mg Ezetimibe (Zetia) 10 mg PO HS [facility] Last Admin: 08/07/17 21:18 Dose: 10 mg Enoxaparin Sodium (Lovenox) 30 mg SC DAILY [facility] Last Admin: 08/08/17 09:34 Dose: 30 mg Famotidine (Pepcid) 20 mg PO BID [facility] Last Admin: 08/08/17 09:34 Dose: 20 mg Hydralazine HCl (Apresoline) 50 mg PO BID [facility] Last Admin: 08/08/17 09:34 Dose: 50 mg Piperacillin Sod/Tazobactam Sod (Zosyn 3.375 Gm Iv Premix) 3.375 gm in 50 mls @ 200 mls/hr IVPB Q8H [facility] PRN Reason: Protocol Last Admin: 08/08/17 08:26 Dose: 200 mls/hr Metronidazole (Flagyl) 500 mg in 100 mls @ 100 mls/hr IVPB Q8 [facility] PRN Reason: Protocol Stop: 08/15/17 14:01 Last Admin: 08/08/17 13:33 Dose: 100 mls/hr Magnesium Sulfate/Dextrose (Magnesium Sulfate 1 Gm/100 Ml D5w) 1 gm in 100 mls @ 100 mls/hr IVPB ONCE ONE Stop: 08/08/17 14:59 Methylprednisolone (Solu-Medrol) 40 mg IVP Q8 [facility] Last Admin: 08/08/17 13:31 Dose: 40 mg Ondansetron HCl (Zofran Inj) 4 mg IVP Q6H [facility] Last Admin: 08/08/17 13:28 Dose: 4 mg Sacubitril/Valsartan (Entresto 49 Mg-51 Mg) 2 tab PO BID [facility] Last Admin: 08/08/17 09:35 Dose: 2 tab Spironolactone (Aldactone) 25 mg PO DAILY [facility] Last Admin: 08/08/17 09:34 Dose: 25 mg Torsemide (Demadex) 40 mg PO BID [facility] Last Admin: 08/08/17 09:35 Dose: 40 mg - Labs Labs: 08/08/17 07:18 08/08/17 07:18 - Constitutional Appears: Non-toxic, No Acute Distress - Head Exam Head Exam: ATRAUMATIC, NORMAL INSPECTION, NORMOCEPHALIC - Eye Exam Eye Exam: EOMI, Normal appearance Pupil Exam: NORMAL ACCOMODATION - ENT Exam ENT Exam: Mucous Membranes Moist - Respiratory Exam Respiratory Exam: Clear to Ausculation Bilateral, NORMAL BREATHING PATTERN. absent: Rales, Rhonchi, Wheezes, Stridor - Cardiovascular Exam Cardiovascular Exam: REGULAR RHYTHM, RRR, +S1, +S2. absent: Murmur - GI/Abdominal Exam GI & Abdominal Exam: Soft, Tenderness, Normal Bowel Sounds. absent: Distended - Extremities Exam Extremities Exam: Full ROM, Normal Inspection. absent: Pedal Edema - Back Exam Back Exam: NORMAL INSPECTION - Neurological Exam Neurological Exam: Alert, Awake, Oriented x3 - Psychiatric Exam Psychiatric exam: Normal Affect, Normal Mood - Skin Skin Exam: Intact, Normal Color, Warm Assessment and Plan - Assessment and Plan (Free Text) Assessment: (1) Palpitations Assessment and Plan: Cardio (Ben) - will come evaluate the patient, follow up [facility] [employer] contacted to saraial pace maker Troponin I (-) x 3 tsh- .90 f/u Echo report Status: Acute (2) Heart failure Assessment and Plan: Patient reports last echo within one year had EF of 40-45 improved from 20% Coreg 25 PO BID Ezetimibe 10 PO QD Entresto 49- 51mg PO BID Aldactone 25 PO QD Demadex 40 PO BID Status: Acute (3) Hypokalemia Assessment and Plan: K+ 2.8, repleted f/u cmp Status: Acute (4) Ulcerative colitis Assessment and Plan: presented with nausea, diarrhea Dr. Melton is his GI but he hasnt followed up in years takes no meds for his UC Dr. Melton consulted, help appreciated Zosyn 3.375 q8h Flagyl 500mg q8h Pepcid 20 po BID Zofran 4mg Q6 Prednisone 40mg ivp q8h F/U Blood cultures f/u sed rate, amylase, PT, PTT Status: Chronic (5) HTN (hypertension) Assessment and Plan: Hydralazine 50 PO BID Status: Acute (6) Prophylactic measure Assessment and Plan: liquid diet lovenox 30 sc QD pepcid 20mg po bid SCD Status: Acute <Arcelia Gonzales - Last Filed: 08/08/17 17:26> Objective - Vital Signs/Intake and Output Vital Signs (last 24 hours): Temp Pulse Resp BP Pulse Ox 98.3 F 92 H 20 122/71 95 08/08/17 16:09 08/08/17 16:09 08/08/17 16:09 08/08/17 16:09 08/08/17 16:09 - Medications Medications: Current Medications Carvedilol (Coreg) 25 mg PO BID [facility] Last Admin: 08/08/17 09:39 Dose: 25 mg Ezetimibe (Zetia) 10 mg PO HS [facility] Last Admin: 08/07/17 21:18 Dose: 10 mg Enoxaparin Sodium (Lovenox) 30 mg SC DAILY [facility] Last Admin: 08/08/17 09:34 Dose: 30 mg Famotidine (Pepcid) 20 mg PO BID [facility] Last Admin: 08/08/17 09:34 Dose: 20 mg Hydralazine HCl (Apresoline) 50 mg PO BID [facility] Last Admin: 08/08/17 09:34 Dose: 50 mg Piperacillin Sod/Tazobactam Sod (Zosyn 3.375 Gm Iv Premix) 3.375 gm in 50 mls @ 200 mls/hr IVPB Q8H [facility] PRN Reason: Protocol Last Admin: 08/08/17 08:26 Dose: 200 mls/hr Metronidazole (Flagyl) 500 mg in 100 mls @ 100 mls/hr IVPB Q8 [facility] PRN Reason: Protocol Stop: 08/15/17 14:01 Last Admin: 08/08/17 13:33 Dose: 100 mls/hr Methylprednisolone (Solu-Medrol) 40 mg IVP Q8 [facility] Last Admin: 08/08/17 13:31 Dose: 40 mg Ondansetron HCl (Zofran Inj) 4 mg IVP Q6H [facility] Last Admin: 08/08/17 13:28 Dose: 4 mg Sacubitril/Valsartan (Entresto 49 Mg-51 Mg) 2 tab PO BID [facility] Last Admin: 08/08/17 09:35 Dose: 2 tab Spironolactone (Aldactone) 25 mg PO DAILY [facility] Last Admin: 08/08/17 09:34 Dose: 25 mg Torsemide (Demadex) 40 mg PO BID [facility] Last Admin: 08/08/17 09:35 Dose: 40 mg - Labs Labs: 08/08/17 07:18 08/08/17 16:36 PT 12.7 SECONDS (9.7-12.2) H 08/08/17 16:36 INR 1.1 08/08/17 16:36 APTT 32 SECONDS (21-34) 08/08/17 16:36 Attending/Attestation - Attestation I have personally seen and examined this patient.: Yes I have fully participated in the care of the patient.: Yes I have reviewed all pertinent clinical information, including history, physical exam and plan: Yes Notes (Text): seen and examined patient is feeling weak and having diarrhea.H/O ulcerative colitis for years. Treated long time back.No recent treatment for his UC Denies fever at home,no vomiting. Drinking fluids 1.Palpitation and Heart failure. s/p AICD Patient reports last echo within one year had EF of 40-45 improved from 20% Coreg 25 PO BID,Ezetimibe 10 PO QD,Entresto 49- 51mg PO BID,Aldactone 25 PO QD Demadex 40 PO BID 2.Acute exacerbation of Ulcerative colitis / diarrhea Dr. Melton consulted Zosyn 3.375 q8h Flagyl 500mg q8h Pepcid 20 po BID Zofran 4mg Q6 started on solu medrol 40mg ivp q8h 3. Hypokalemia K+ 2.8, repleted f/u cmp 4.HTN (hypertension) Hydralazine 50 PO BID 5 .Prophylactic measure liquid diet lovenox 30 sc QD pepcid 20mg po bid SCD
--- NOTE | 2017-08-08 14:18 | PN ---
DATE: LOCATION: [facility], bed A. SUBJECTIVE: This is a 36-year-old male seen and examined in rounds for GI consultation on 08/07/2017 as requested by the admitting MD, re-examined again early today. The patient still has intermittent periods of abdominal pain with some chest pain in the midsternal line with nausea, but no reported active bleeding. No shortness of breath and no recent change of bowel movement habit. The entire chart is reviewed including but not limited to the most recent lab and radiology study results, current and the previous medication list, current and the previous medical events. Case discussed with the staff at length. Most recent lab results showed normal CBC with normal white blood cells post admission with potassium 2.8, blood glucose level 113, calcium 8.0, with normal liver function tests as well as normal lipase level. Abdomen ultrasound as well as CAT scan reports were seen. PHYSICAL EXAMINATION: GENERAL: A 36-year-old male. VITAL SIGNS: Afebrile, with pulse of 92, respiratory rate 20 to 22, and blood pressure 116/74. HEENT: Showed pale, dry oral mucous membranes. Nonicteric sclerae. LUNGS: Clear. Breathing sounds are present bilaterally. HEART: Positive S1 and S2 with increased rate. ABDOMEN: Soft, with generalized tenderness. No mass or organomegaly. No rebound tenderness or guarding. RECTAL: The patient refused. EXTREMITIES: Without significant clubbing, cyanosis, or edema. NEUROLOGIC: No reported new neurological deficits, sensory or motor. No reported focal deficits. Peripheral pulses are present, but weak bilaterally. IMPRESSION: 1. Re-exacerbation of inflammatory bowel disease, with known history of Crohn's disease. 2. Known history of hypertension, congestive heart failure. 3. Migraine headache by recent history. 4. Cardiac arrhythmias, status post pacemaker insertion. 5. Chest pain, cardiac versus noncardiac. 6. Abnormal CAT scan of the abdomen and pelvis. SUGGESTION: 1. Agree with your plan. 2. Follow up on echocardiogram results. 3. The patient may need upper endoscopy. 4. The possibility of partial gastric outlet obstruction, however, was somewhat . Suggestion as above. 5. We will follow up closely with you and sedimentation rate to be ordered. Pearl Mcdonald MD [facility] # [id number]
[2017-08-08 16:50] LABS: INR 1.1; PROTHROMBIN TIME 12.7 SECONDS (9.7-12.2)
[2017-08-08 16:54] LABS: ALBUMIN 4.2 g/dL (3.5-5.0); ALT/SGPT 29 U/L (21-72); AST/SGOT 28 U/L (17-59); BLOOD UREA NITROGEN 15 mg/dL (9-20); GFR AFRICAN-AMERICAN > 60; GFR NON-AFRICAN AMERICAN > 60
--- NOTE | 2017-08-08 17:54 | CARD ---
APPROVED REPORT EXAM: Two-dimensional and M-mode echocardiogram with Doppler and color Doppler. Other Information Quality : AverageRhythm : NSR INDICATION Chest Pain Palpitations Surgery/Intervention Pacemaker: RISK FACTORS Hypertension Hyperlipidemia M-Mode DIMENSIONS RVDd2.31 (2.1-3.2cm)Left Atrium (MM)3.29 (2.5-4.0cm) IVSd1.14 (0.7-1.1cm)Aortic Root2.44 (2.2-3.7cm) LVDd4.72 (4.0-5.6cm)Aortic Cusp Exc.1.56 (1.5-2.0cm) PWd1.14 (0.7-1.1cm)FS (%) 34 % LVDs3.12 (2.0-3.8cm)LVEF (%)63 (>50%) Aortic Valve AoV Peak Xbkuzkvg081.6cm/Ellie Peak GR.10mmHg Mitral Valve MV E Ijgyawhr98.1cm/sMV A Zmckyezs49.7cm/sE/A ratio1.1 TDI E/Lateral E'0.0E/Medial E'0.0 Tricuspid Valve TR Peak Ggrpollg902ii/sTR Peak Gr.[id number] LEFT VENTRICLE The left ventricle is normal size. There is normal left ventricular wall thickness. The left ventricular function is normal. The left ventricular ejection fraction is within the normal range. There is normal LV segmental wall motion. RIGHT VENTRICLE The right ventricle is normal size. ATRIA The left atrium size is normal. The right atrium size is normal. AORTIC VALVE The aortic valve is normal in structure. MITRAL VALVE The mitral valve is normal in structure. TRICUSPID VALVE There is trace tricuspid regurgitation. <Conclusion> Normal LV systolic function. Normal chamber size. No significant valvular abnormality seen.
--- NOTE | 2017-08-08 18:21 | CARD ---
APPROVED REPORT EKG Measurement Heart [id number] RI [id number] <Conclusion> Atrial-sensed ventricular-paced rhythm Abnormal ECG
--- NOTE | 2017-08-08 18:24 | CARD ---
APPROVED REPORT EKG Measurement Heart [id number] MD [id number] <Conclusion> Atrial-sensed ventricular-paced rhythm Abnormal ECG
[2017-08-08] MEDS ORDERED: Potassium Chloride 20 mEq ER Tab PO ONE (21:20)
--- NOTE | 2017-08-08 23:45 | CP.PCM.PN ---
Subjective - Date & Time of Evaluation Date of Evaluation: 08/08/17 Time of Evaluation: 09:10 Objective - Vital Signs/Intake and Output Vital Signs (last 24 hours): Temp Pulse Resp BP Pulse Ox 98.3 F 92 H 20 122/71 95 08/08/17 16:09 08/08/17 16:09 08/08/17 16:09 08/08/17 17:29 08/08/17 16:09 Intake and Output: 08/08/17 08/09/17 18:59 06:59 Intake Total 200 Balance 200 - Medications Medications: Current Medications Carvedilol (Coreg) 25 mg PO BID [facility] Last Admin: 08/08/17 17:29 Dose: 25 mg Ezetimibe (Zetia) 10 mg PO HS [facility] Last Admin: 08/08/17 21:33 Dose: 10 mg Enoxaparin Sodium (Lovenox) 30 mg SC DAILY [facility] Last Admin: 08/08/17 09:34 Dose: 30 mg Famotidine (Pepcid) 20 mg PO BID [facility] Last Admin: 08/08/17 17:31 Dose: 20 mg Hydralazine HCl (Apresoline) 50 mg PO BID [facility] Last Admin: 08/08/17 17:29 Dose: 50 mg Piperacillin Sod/Tazobactam Sod (Zosyn 3.375 Gm Iv Premix) 3.375 gm in 50 mls @ 200 mls/hr IVPB Q8H [facility] PRN Reason: Protocol Last Admin: 08/08/17 17:30 Dose: 200 mls/hr Metronidazole (Flagyl) 500 mg in 100 mls @ 100 mls/hr IVPB Q8 [facility] PRN Reason: Protocol Stop: 08/15/17 14:01 Last Admin: 08/08/17 21:33 Dose: 100 mls/hr Methylprednisolone (Solu-Medrol) 40 mg IVP Q8 [facility] Last Admin: 08/08/17 21:33 Dose: 40 mg Ondansetron HCl (Zofran Inj) 4 mg IVP Q6H [facility] Last Admin: 08/08/17 20:17 Dose: 4 mg Sacubitril/Valsartan (Entresto 49 Mg-51 Mg) 2 tab PO BID [facility] Last Admin: 08/08/17 17:29 Dose: 2 tab Spironolactone (Aldactone) 25 mg PO DAILY [facility] Last Admin: 08/08/17 09:34 Dose: 25 mg Torsemide (Demadex) 40 mg PO BID [facility] Last Admin: 08/08/17 17:28 Dose: 40 mg - Labs Labs: 08/08/17 07:18 08/08/17 16:36 PT 12.7 SECONDS (9.7-12.2) H 08/08/17 16:36 INR 1.1 08/08/17 16:36 APTT 32 SECONDS (21-34) 08/08/17 16:36
[2017-08-09] MEDS: MethylPREDNISolone 40 mg Vial IVP SCH ×3 (05:31→21:27)
[2017-08-09] MEDS: metroNIDAZOLE IV 500 mg/100 ml 500 MG/100 ML BAG IVPB SCH ×3 (05:32→21:23)
[2017-08-09] MEDS: Piperacill/Tazo 3.375gm in Dex 3.375 GM/50 ML BAG IVPB SCH ×3 (08:21→23:56)
[2017-08-09] MEDS ORDERED: Lidocaine Hydrochloride 5 ML INJ ONE (09:27)
[2017-08-09] MEDS ORDERED: Propofol 10 mg/ml Inj (20 ML) ONE (09:27)
[2017-08-09] MEDS ORDERED: Lactated Ringer's 500 ML IV ONE (09:32)
[2017-08-09] MEDS: Enoxaparin 30 mg Syringe SC SCH (11:00)
[2017-08-09] MEDS: Sacubitril/Valsartan 49-51 Tab PO SCH ×2 (11:00→17:35)
[2017-08-09] MEDS ORDERED: Peg-Electrolyte Oral Soln 4L (Golytely) PO ONE ×2 (11:30→13:30)
--- NOTE | 2017-08-09 13:38 | CP.PCM.PN ---
<Trena Ledezma - Last Filed: 08/09/17 15:11> Subjective - Date & Time of Evaluation Date of Evaluation: 08/09/17 Time of Evaluation: 07:00 - Subjective Subjective: PGY1- Medicine Note Patient seen and examined at bedside in no acute distress. Patient says he has not had anymore diarrhea overnight and is feeling much better. Patient felt anxious overnight and still feeling a little anxious. Patient denies shortness of breath, chest pain, abdominal pain, nausea, vomiting, constipation, or diarrhea. Objective - Vital Signs/Intake and Output Vital Signs (last 24 hours): Temp Pulse Resp BP Pulse Ox 97.9 F 98 H 20 120/80 96 08/09/17 10:48 08/09/17 12:00 08/09/17 10:48 08/09/17 11:00 08/09/17 10:48 Intake and Output: 08/09/17 08/09/17 06:59 18:59 Intake Total 200 Balance 200 - Medications Medications: Current Medications Bisacodyl (Dulcolax) 10 mg PO ONCE ONE Stop: 08/09/17 17:01 Carvedilol (Coreg) 25 mg PO BID [facility] Last Admin: 08/09/17 11:00 Dose: 25 mg Ezetimibe (Zetia) 10 mg PO HS [facility] Last Admin: 08/08/17 21:33 Dose: 10 mg Enoxaparin Sodium (Lovenox) 30 mg SC DAILY [facility] Last Admin: 08/09/17 11:00 Dose: 30 mg Famotidine (Pepcid) 20 mg PO BID [facility] Last Admin: 08/09/17 11:00 Dose: 20 mg Hydralazine HCl (Apresoline) 50 mg PO BID [facility] Last Admin: 08/09/17 11:00 Dose: 50 mg Piperacillin Sod/Tazobactam Sod (Zosyn 3.375 Gm Iv Premix) 3.375 gm in 50 mls @ 200 mls/hr IVPB Q8H [facility] PRN Reason: Protocol Last Admin: 08/09/17 08:21 Dose: 200 mls/hr Metronidazole (Flagyl) 500 mg in 100 mls @ 100 mls/hr IVPB Q8 [facility] PRN Reason: Protocol Stop: 08/15/17 14:01 Last Admin: 08/09/17 05:32 Dose: 100 mls/hr Methylprednisolone (Solu-Medrol) 40 mg IVP Q8 [facility] Last Admin: 08/09/17 05:31 Dose: 40 mg Metoclopramide HCl (Reglan) 5 mg IVP Q6H [facility] Last Admin: 08/09/17 11:01 Dose: Not Given Ondansetron HCl (Zofran Inj) 4 mg IVP Q6H [facility] Last Admin: 08/09/17 08:18 Dose: 4 mg Sacubitril/Valsartan (Entresto 49 Mg-51 Mg) 2 tab PO BID [facility] Last Admin: 08/09/17 11:00 Dose: 2 tab Spironolactone (Aldactone) 25 mg PO DAILY [facility] Last Admin: 08/09/17 11:00 Dose: 25 mg Torsemide (Demadex) 40 mg PO BID [facility] Last Admin: 08/09/17 11:00 Dose: 40 mg - Labs Labs: 08/08/17 07:18 08/08/17 16:36 PT 12.7 SECONDS (9.7-12.2) H 08/08/17 16:36 INR 1.1 08/08/17 16:36 APTT 32 SECONDS (21-34) 08/08/17 16:36 - Additional Findings Additional findings: (1) Palpitations Assessment and Plan: Cardio (Ben) - will come evaluate the patient, follow up [facility] [employer] contacted to lyla pace maker Troponin I (-) x 3 tsh- .90 f/u Echo report Status: Acute (2) Heart failure Assessment and Plan: Patient reports last echo within one year had EF of 40-45 improved from 20% Coreg 25 PO BID Ezetimibe 10 PO QD Entresto 49- 51mg PO BID Aldactone 25 PO QD Demadex 40 PO BID Status: Acute (3) Hypokalemia Assessment and Plan: K+ 2.8, repleted f/u cmp Status: Acute (4) Ulcerative colitis Assessment and Plan: presented with nausea, diarrhea Dr. Melton is his GI but he hasnt followed up in years takes no meds for his UC Dr. Melton consulted, help appreciated colonoscopy today Zosyn 3.375 q8h Flagyl 500mg q8h Pepcid 20 po BID Zofran 4mg Q6 Prednisone 40mg ivp q8h F/U Blood cultures f/u sed rate, amylase, PT, PTT Status: Chronic (5) HTN (hypertension) Assessment and Plan: Hydralazine 50 PO BID Status: Acute (6) Prophylactic measure Assessment and Plan: liquid diet lovenox 30 sc QD pepcid 20mg po bid SCD Status: Acute Assessment and Plan - Assessment and Plan (Free Text) Assessment: (1) Palpitations Assessment and Plan: Cardio (Ben) - will come evaluate the patient, follow up [facility] [employer] [facility] evaluated AICD on 08/08 Troponin I (-) x 3 tsh- .90 Echo report: normal LV systolic fxn, normal chamber size, no significant valvular abnormality seen. Status: Acute (2) Heart failure Assessment and Plan: Patient reports last echo within one year had EF of 40-45 improved from 20% Coreg 25 PO BID Ezetimibe 10 PO QD Entresto 49- 51mg PO BID Aldactone 25 PO QD Demadex 40 PO BID Status: Acute (3) Hypokalemia Assessment and Plan: resolving, 3.4 on 08/09- Kdur 20 given continue monitoring/ replete as needed Status: Acute (4) Ulcerative colitis Assessment and Plan: presented with nausea, diarrhea Dr. Melton is his GI but he hasnt followed up in years takes no meds for his UC Dr. Melton consulted, help appreciated patient had endoscopy today, f/u official report patient for colonoscopy tomorrow Zosyn 3.375 q8h Flagyl 500mg q8h Pepcid 20 po BID Zofran 4mg Q6 Prednisone 40mg ivp q8h Blood cultures neg 24 hours ESR 91 Status: Chronic (5) HTN (hypertension) Assessment and Plan: Hydralazine 50 PO BID Status: Acute (6) Prophylactic measure Assessment and Plan: liquid diet lovenox 30 sc QD pepcid 20mg po bid SCD Status: Acute <Arcelia Gonzales - Last Filed: 08/10/17 17:24> Objective - Vital Signs/Intake and Output Vital Signs (last 24 hours): Temp Pulse Resp BP Pulse Ox 97.9 F 98 H 20 95/57 L 96 08/10/17 16:00 08/10/17 16:00 08/10/17 16:00 08/10/17 16:00 08/10/17 16:00 Intake and Output: 08/10/17 08/10/17 06:59 18:59 Intake Total 350 Balance 350 - Medications Medications: Current Medications Amlodipine Besylate (Norvasc) 10 mg PO DAILY [facility] Last Admin: 08/10/17 09:07 Dose: Not Given Carvedilol (Coreg) 25 mg PO BID [facility] Last Admin: 08/10/17 09:31 Dose: Not Given Ezetimibe (Zetia) 10 mg PO HS [facility] Last Admin: 08/09/17 21:25 Dose: 10 mg Enoxaparin Sodium (Lovenox) 30 mg SC DAILY [facility] Last Admin: 08/10/17 09:03 Dose: 30 mg Famotidine (Pepcid) 20 mg PO BID [facility] Last Admin: 08/10/17 09:04 Dose: 20 mg Hydralazine HCl (Apresoline) 50 mg PO BID [facility] Last Admin: 08/10/17 09:32 Dose: Not Given Piperacillin Sod/Tazobactam Sod (Zosyn 3.375 Gm Iv Premix) 3.375 gm in 50 mls @ 200 mls/hr IVPB Q8H [facility] PRN Reason: Protocol Last Admin: 08/10/17 16:34 Dose: 200 mls/hr Metronidazole (Flagyl) 500 mg in 100 mls @ 100 mls/hr IVPB Q8 [facility] PRN Reason: Protocol Stop: 08/15/17 14:01 Last Admin: 08/10/17 13:33 Dose: 100 mls/hr Methylprednisolone (Solu-Medrol) 40 mg IVP Q8 [facility] Last Admin: 08/10/17 14:36 Dose: 40 mg Metoclopramide HCl (Reglan) 5 mg IVP Q6H [facility] Last Admin: 08/10/17 16:27 Dose: Not Given Ondansetron HCl (Zofran Inj) 4 mg IVP Q6H [facility] Last Admin: 08/10/17 12:51 Dose: 4 mg Torsemide (Demadex) 40 mg PO DAILY [facility] Last Admin: 08/10/17 09:31 Dose: 40 mg - Labs Labs: 08/10/17 07:32 08/10/17 07:32 PT 12.7 SECONDS (9.7-12.2) H 08/08/17 16:36 INR 1.1 08/08/17 16:36 APTT 32 SECONDS (21-34) 08/08/17 16:36 Attending/Attestation - Attestation I have personally seen and examined this patient.: Yes I have fully participated in the care of the patient.: Yes I have reviewed all pertinent clinical information, including history, physical exam and plan: Yes Notes (Text): patient is feeling weak and having diarrhea.H/O ulcerative colitis for years. Treated long time back.No recent treatment for his UC Diarrhea better s/p EGD today.going for colonoscopy tomorrow continue solumedrol 1.Palpitation and Heart failure. s/p AICD Patient reports last echo within one year had EF of 40-45 improved from 20% Coreg 25 PO BID,Ezetimibe 10 PO QD,Entresto 49- 51mg PO BID,Aldactone 25 PO QD Demadex 40 PO BID 2.Acute exacerbation of Ulcerative colitis / diarrhea Dr. Melton consulted Zosyn 3.375 q8h Flagyl 500mg q8h Pepcid 20 po BID Zofran 4mg Q6 started on solu medrol 40mg ivp q8h 4.HTN (hypertension) Hydralazine 50 PO BID 5 .Prophylactic measure liquid diet lovenox 30 sc QD pepcid 20mg po bid
[2017-08-09 13:40] LABS: BASO # 0.1 K/uL (0.0-0.2); BASO % 0.2 % (0.0-2.0); HEMOGLOBIN 12.1 g/dL (12.0-18.0); LYMPH # 1.6 K/uL (1.0-4.3); LYMPH % 7.2 % (20.0-40.0); MEAN CELL VOLUME 86.6 fL (80.0-94.0); MEAN CORPUSCULAR HEMOGLOBIN 29.3 pg (27.0-31.0); MEAN CORPUSCULAR HGB CONC 33.8 g/dL (33.0-37.0); MEAN PLATELET VOLUME 8.2 fL (7.2-11.7); MONO # 0.9 K/uL (0.0-0.8); MONO % 4.2 % (0.0-10.0); NEUT # 19.3 K/uL (1.8-7.0); NEUT % 88.4 % (50.0-75.0); PLATELET COUNT 340 K/uL (130-400); RBC 4.13 Mil/uL (4.40-5.90); RED CELL DISTRIBUTION WIDTH 13.9 % (11.5-14.5); WHITE BLOOD COUNT 21.8 K/uL (4.8-10.8)
[2017-08-09 14:04] LABS: LYMPHOCYTE 11 % (20-40); MONOCYTE 6 % (0-10); NEUTROPHIL 83 % (50-75); PLATELET ESTIMATE NORMAL (NORMAL); TOTAL CELLS COUNTED 100
[2017-08-09 14:15] LABS: ALB/GLOB RATIO 0.9 (1.0-2.1); ALT/SGPT 31 U/L (21-72); AST/SGOT 34 U/L (17-59); BLOOD UREA NITROGEN 15 mg/dL (9-20); CALCIUM 8.6 mg/dl (8.6-10.4); GFR AFRICAN-AMERICAN > 60; GFR NON-AFRICAN AMERICAN > 60
[2017-08-09] MEDS ORDERED: Potassium Chloride 20 mEq ER Tab PO ONE ×3 (15:30→20:47)
[2017-08-09] MEDS ORDERED: Bisacodyl 5mg EC Tab PO ONE (17:00)
--- NOTE | 2017-08-09 20:36 | CP.PCM.PN ---
Subjective - Date & Time of Evaluation Date of Evaluation: 08/09/17 Time of Evaluation: 16:15 - Subjective Subjective: Patient seen and evaluated Denies chest pain and dyspnea Review of Systems - Constitutional Constitutional: Fatigue, Weakness - EENT Eyes: absent: As Per HPI, Blind Spots, Blurred Vision, Change in Vision, Decreased Night Vision, Diplopia, Discharge, Dry Eye, Exophthalmos, Floaters, Irritation, Itchy Eyes, Loss of Peripheral Vision, Pain, Photophobia, Requires Corrective Lenses, Sees Flashes, Spots in Vision, Tunnel Vision, Other Visual Disturbances, Loss of Vision, Other Ears: absent: As Per HPI, Decreased Hearing, Ear Discharge, Ear Pain, Tinnitus, Abnormal Hearing, Disequilibrium, Dizziness, Other Nose/Mouth/Throat: absent: As Per HPI, Epistaxis, Nasal Congestion, Nasal Discharge, Nasal Obstruction, Nasal Trauma, Nose Pain, Post Nasal Drip, Sinus Pain, Sinus Pressure, Bleeding Gums, Change in Voice, Dental Pain, Dry Mouth, Dysphagia, Halitosis, Hoarsness, Lip Swelling, Mouth Lesions, Mouth Pain, Odynophagia, Sore Throat, Throat Swelling, Tongue Swelling, Facial Pain, Neck Pain, Neck Mass, Other - Cardiovascular Cardiovascular: Palpitations - Respiratory Respiratory: absent: As Per HPI, Cough, Dyspnea, Hemoptysis, Dyspnea on Exertion , Wheezing, Snoring, Stridor, Pain on Inspiration, Chest Congestion, Excessive Mucous Production, Change in Mucous Color, Pain with Coughing, Other - Gastrointestinal Gastrointestinal: Abdominal Pain, Bloating, Diarrhea - Genitourinary Genitourinary: absent: As Per HPI, Change in Urinary Stream, Difficulty Urinating, Dysuria, Flank Pain, Hematuria, Pyuria, Nocturia, Urinary Incontinence, Urinary Frequency, Urinary Hesitance, Urinary Urgency, Voiding Freq/Small Amts, Freq UTI, Hx Renal/Bladder Calculi, Hx /Renal Surgery, Bladder Distension, Other - Musculoskeletal Musculoskeletal: Muscle Cramps - Integumentary Integumentary: absent: As Per HPI, Acne, Alopecia, Bleeding Lesions, Change in Hair, Change in Nails, Change in Pigmentation, Changing Lesions, Dry Skin, Erythema, Furuncle, Hirsutism, Lesions, New Lesions, Non-Healing Lesions, Photosensitivity, Pruritus, Rash, Skin Pain, Skin Ulcer, Sores, Striae, Swelling , Unusual Bruising, Wounds, Jaundice, Other - Neurological Neurological: absent: As Per HPI, Abnormal Gait, Abnormal Hearing, Abnormal Movements, Abnormal Speech, Behavioral Changes, Burning Sensations, Confusion, Convulsions, Disequilibrium, Dizziness, Numbness, Focal Weakness, Frequent Falls , Headaches, Lack of Coordination, Loss of Vision, Memory Loss, Paresthesias, Radicular Pain, Restless Legs, Sensory Deficit, Syncope, Tingling, Tremor, Vertigo, Weakness, Other Visual Disturbances, Other - Psychiatric Psychiatric: absent: As Per HPI, Abnormal Sleep Pattern, Anhedonia, Anxiety, Auditory Hallucinations, Behavioral Changes, Change in Appetite, Change in Libido, Confusion, Depression, Difficulty Concentrating, Hallucinations, Homicidal Ideation, Hopelessness, Irritability, Memory Loss, Mood Swings, Panic Attacks, Paranoia, Suicidal Ideation, Visual Hallucinations, Tactile Hallucinations, Other - Endocrine Endocrine: absent: As Per HPI, Change in Body Appearance, Change in Libido, Cold Intolorance, Deepening of Voice, Excessive Sweating, Fatigue, Flushing, Heat Intolorance, Increase in Ring/Shoe/Hat Size, Palpitations, Polydipsia, Polyphagia, Polyuria, Other - Hematologic/Lymphatic Hematologic: absent: As Per HPI, Easy Bleeding, Easy Bruising, Lymphadenopathy, Other Physical Exam - Constitutional Appears: Non-toxic - Head Exam Head Exam: ATRAUMATIC - Eye Exam Eye Exam: EOMI, Normal appearance - ENT Exam ENT Exam: Mucous Membranes Moist - Neck Exam Neck exam: Positive for: Normal Inspection - Respiratory Exam Respiratory Exam: Clear to Auscultation Bilateral, NORMAL BREATHING PATTERN - Cardiovascular Exam Cardiovascular Exam: Tachycardia, REGULAR RHYTHM, +S1, +S2 Additional comments: paced - GI/Abdominal Exam GI & Abdominal Exam: Normal Bowel Sounds - Extremities Exam Extremities exam: Positive for: full ROM - Neurological Exam Neurological exam: Alert, CN II-XII Intact - Skin Skin Exam: Dry, Warm Objective - Vital Signs/Intake and Output Vital Signs (last 24 hours): Temp Pulse Resp BP Pulse Ox 97.6 F 93 H 20 110/78 95 08/09/17 15:44 08/09/17 16:30 08/09/17 15:44 08/09/17 17:44 08/09/17 15:44 Intake and Output: 08/09/17 08/10/17 18:59 06:59 Intake Total 600 Balance 600 - Medications Medications: Current Medications Carvedilol (Coreg) 25 mg PO BID [facility] Last Admin: 08/09/17 17:44 Dose: 25 mg Ezetimibe (Zetia) 10 mg PO HS [facility] Last Admin: 08/08/17 21:33 Dose: 10 mg Enoxaparin Sodium (Lovenox) 30 mg SC DAILY [facility] Last Admin: 08/09/17 11:00 Dose: 30 mg Famotidine (Pepcid) 20 mg PO BID [facility] Last Admin: 08/09/17 17:35 Dose: 20 mg Hydralazine HCl (Apresoline) 50 mg PO BID [facility] Last Admin: 08/09/17 11:00 Dose: 50 mg Piperacillin Sod/Tazobactam Sod (Zosyn 3.375 Gm Iv Premix) 3.375 gm in 50 mls @ 200 mls/hr IVPB Q8H [facility] PRN Reason: Protocol Last Admin: 08/09/17 17:37 Dose: 200 mls/hr Metronidazole (Flagyl) 500 mg in 100 mls @ 100 mls/hr IVPB Q8 [facility] PRN Reason: Protocol Stop: 08/15/17 14:01 Last Admin: 08/09/17 13:52 Dose: 100 mls/hr Methylprednisolone (Solu-Medrol) 40 mg IVP Q8 [facility] Last Admin: 08/09/17 13:52 Dose: 40 mg Metoclopramide HCl (Reglan) 5 mg IVP Q6H [facility] Last Admin: 08/09/17 16:55 Dose: Not Given Ondansetron HCl (Zofran Inj) 4 mg IVP Q6H [facility] Last Admin: 08/09/17 19:08 Dose: 4 mg Sacubitril/Valsartan (Entresto 49 Mg-51 Mg) 2 tab PO BID [facility] Last Admin: 08/09/17 17:35 Dose: 2 tab Spironolactone (Aldactone) 25 mg PO DAILY [facility] Last Admin: 08/09/17 11:00 Dose: 25 mg Torsemide (Demadex) 40 mg PO BID [facility] Last Admin: 08/09/17 17:35 Dose: 40 mg - Labs Labs: 08/09/17 13:34 08/09/17 13:34 PT 12.7 SECONDS (9.7-12.2) H 08/08/17 16:36 INR 1.1 08/08/17 16:36 APTT 32 SECONDS (21-34) 08/08/17 16:36 Assessment and Plan - Assessment and Plan (Free Text) Assessment: Hx of CHF Current ECHO shows near normal EF Ulcerative Colitis D/C entresto Continue other BP medications and follow BP
[2017-08-10] MEDS: MethylPREDNISolone 40 mg Vial IVP SCH ×2 (05:02→14:36)
[2017-08-10] MEDS: metroNIDAZOLE IV 500 mg/100 ml 500 MG/100 ML BAG IVPB SCH ×2 (05:03→13:33)
[2017-08-10] MEDS: Piperacill/Tazo 3.375gm in Dex 3.375 GM/50 ML BAG IVPB SCH ×2 (07:30→16:34)
[2017-08-10 07:37] LABS: BASO % 0.1 % (0.0-2.0); HEMOGLOBIN 11.8 g/dL (12.0-18.0); LYMPH # 1.6 K/uL (1.0-4.3); LYMPH % 6.6 % (20.0-40.0); MEAN CELL VOLUME 86.7 fL (80.0-94.0); MEAN CORPUSCULAR HEMOGLOBIN 28.9 pg (27.0-31.0); MEAN CORPUSCULAR HGB CONC 33.3 g/dL (33.0-37.0); MEAN PLATELET VOLUME 8.1 fL (7.2-11.7); MONO # 0.8 K/uL (0.0-0.8); MONO % 3.3 % (0.0-10.0); NEUT # 21.7 K/uL (1.8-7.0); PLATELET COUNT 386 K/uL (130-400); RBC 4.09 Mil/uL (4.40-5.90); RED CELL DISTRIBUTION WIDTH 13.9 % (11.5-14.5); WHITE BLOOD COUNT 24.1 K/uL (4.8-10.8)
--- NOTE | 2017-08-10 07:46 | CP.PCM.PN ---
Subjective - Date & Time of Evaluation Date of Evaluation: 08/10/17 Time of Evaluation: 07:00 - Subjective Subjective: PGY1- Medicine Note Patient seen and examined at bedside and in no acute distress. Patient is feeling okay. Patient had to do bowel prep for colonoscopy today so had many episodes of diarrhea last night. Patient denies any chest pain, palpitations, abdominal pain, nausea, or vomiting Objective - Vital Signs/Intake and Output Vital Signs (last 24 hours): Temp Pulse Resp BP Pulse Ox 98.1 F 83 20 117/70 95 08/10/17 00:09 08/10/17 07:15 08/10/17 00:09 08/10/17 00:09 08/10/17 00:09 - Medications Medications: Current Medications Amlodipine Besylate (Norvasc) 10 mg PO DAILY [facility] Carvedilol (Coreg) 25 mg PO BID [facility] Last Admin: 08/09/17 17:44 Dose: 25 mg Ezetimibe (Zetia) 10 mg PO HS [facility] Last Admin: 08/09/17 21:25 Dose: 10 mg Enoxaparin Sodium (Lovenox) 30 mg SC DAILY [facility] Last Admin: 08/09/17 11:00 Dose: 30 mg Famotidine (Pepcid) 20 mg PO BID [facility] Last Admin: 08/09/17 17:35 Dose: 20 mg Hydralazine HCl (Apresoline) 50 mg PO BID [facility] Last Admin: 08/09/17 21:25 Dose: 50 mg Piperacillin Sod/Tazobactam Sod (Zosyn 3.375 Gm Iv Premix) 3.375 gm in 50 mls @ 200 mls/hr IVPB Q8H [facility] PRN Reason: Protocol Last Admin: 08/10/17 07:30 Dose: 200 mls/hr Metronidazole (Flagyl) 500 mg in 100 mls @ 100 mls/hr IVPB Q8 [facility] PRN Reason: Protocol Stop: 08/15/17 14:01 Last Admin: 08/10/17 05:03 Dose: 100 mls/hr Methylprednisolone (Solu-Medrol) 40 mg IVP Q8 [facility] Last Admin: 08/10/17 05:02 Dose: 40 mg Metoclopramide HCl (Reglan) 5 mg IVP Q6H [facility] Last Admin: 08/10/17 03:45 Dose: Not Given Ondansetron HCl (Zofran Inj) 4 mg IVP Q6H [facility] Last Admin: 08/10/17 07:30 Dose: 4 mg Torsemide (Demadex) 40 mg PO DAILY [facility] - Labs Labs: 08/10/17 07:32 08/09/17 13:34 PT 12.7 SECONDS (9.7-12.2) H 08/08/17 16:36 INR 1.1 08/08/17 16:36 APTT 32 SECONDS (21-34) 08/08/17 16:36
[2017-08-10 07:55] LABS: ALBUMIN 3.7 g/dL (3.5-5.0); ALT/SGPT 47 U/L (21-72); AST/SGOT 50 U/L (17-59); BLOOD UREA NITROGEN 17 mg/dL (9-20); CALCIUM 8.5 mg/dl (8.6-10.4); GFR AFRICAN-AMERICAN > 60; GFR NON-AFRICAN AMERICAN > 60
[2017-08-10 08:42] VITALS: O2SAT 96
[2017-08-10] MEDS ORDERED: Potassium Chloride 20 mEq ER Tab PO ONE (08:49)
[2017-08-10] MEDS: Enoxaparin 30 mg Syringe SC SCH (09:03)
--- NOTE | 2017-08-10 09:45 | CP.PCM.PN ---
Subjective - Date & Time of Evaluation Date of Evaluation: 08/10/17 Time of Evaluation: 09:39 - Subjective Subjective: PGY-[address] Contreras's Cardiology service: Pt seen and examined at bedside. Nursing reports no acute events overnight. NPO for colonoscopy this AM. His daughter was present at bedside. He was oriented to person/place/time during the interview and in a lucid interval. Daughter states he has been ambulating well with no issues. Denies CP, SOB, nausea, vomiting, muscle cramping or weakness, diaphoresis. Objective - Vital Signs/Intake and Output Vital Signs (last 24 hours): Temp Pulse Resp BP Pulse Ox 97.6 F 83 20 108/68 96 08/10/17 07:00 08/10/17 07:15 08/10/17 07:00 08/10/17 09:31 08/10/17 07:00 - Medications Medications: Current Medications Amlodipine Besylate (Norvasc) 10 mg PO DAILY [facility] Last Admin: 08/10/17 09:07 Dose: Not Given Carvedilol (Coreg) 25 mg PO BID [facility] Last Admin: 08/10/17 09:31 Dose: Not Given Ezetimibe (Zetia) 10 mg PO HS [facility] Last Admin: 08/09/17 21:25 Dose: 10 mg Enoxaparin Sodium (Lovenox) 30 mg SC DAILY [facility] Last Admin: 08/10/17 09:03 Dose: 30 mg Famotidine (Pepcid) 20 mg PO BID [facility] Last Admin: 08/10/17 09:04 Dose: 20 mg Hydralazine HCl (Apresoline) 50 mg PO BID [facility] Last Admin: 08/10/17 09:32 Dose: Not Given Piperacillin Sod/Tazobactam Sod (Zosyn 3.375 Gm Iv Premix) 3.375 gm in 50 mls @ 200 mls/hr IVPB Q8H [facility] PRN Reason: Protocol Last Admin: 08/10/17 07:30 Dose: 200 mls/hr Metronidazole (Flagyl) 500 mg in 100 mls @ 100 mls/hr IVPB Q8 [facility] PRN Reason: Protocol Stop: 08/15/17 14:01 Last Admin: 08/10/17 05:03 Dose: 100 mls/hr Methylprednisolone (Solu-Medrol) 40 mg IVP Q8 [facility] Last Admin: 08/10/17 05:02 Dose: 40 mg Metoclopramide HCl (Reglan) 5 mg IVP Q6H [facility] Last Admin: 08/10/17 09:05 Dose: Not Given Ondansetron HCl (Zofran Inj) 4 mg IVP Q6H [facility] Last Admin: 08/10/17 07:30 Dose: 4 mg Torsemide (Demadex) 40 mg PO DAILY [facility] Last Admin: 08/10/17 09:31 Dose: 40 mg - Labs Labs: 08/10/17 07:32 08/10/17 07:32 PT 12.7 SECONDS (9.7-12.2) H 08/08/17 16:36 INR 1.1 08/08/17 16:36 APTT 32 SECONDS (21-34) 08/08/17 16:36 - Additional Findings Additional findings: - Constitutional Appears: Non-toxic, No Acute Distress - Head Exam Head Exam: ATRAUMATIC, NORMAL INSPECTION, NORMOCEPHALIC - Eye Exam Eye Exam: EOMI, Normal appearance Pupil Exam: NORMAL ACCOMODATION - ENT Exam ENT Exam: Mucous Membranes Moist - large neck body habitus - Respiratory Exam Respiratory Exam: Clear to Ausculation Bilateral, NORMAL BREATHING PATTERN. absent: Rales, Rhonchi, Wheezes, Stridor - Cardiovascular Exam Cardiovascular Exam: REGULAR RHYTHM, RRR, +S1, +S2. absent: Murmur - GI/Abdominal Exam GI & Abdominal Exam: Soft, Tenderness, Normal Bowel Sounds. absent: Distended - Extremities Exam Extremities Exam: Full ROM, Normal Inspection. absent: Pedal Edema - Back Exam Back Exam: NORMAL INSPECTION - Neurological Exam Neurological Exam: Alert, Awake, Oriented x3 - Psychiatric Exam Psychiatric exam: Normal Affect, Normal Mood - Skin Skin Exam: Intact, Normal Color, Warm Assessment and Plan - Assessment and Plan (Free Text) Plan: Heart failure ECHO (08/10/17): EF 63%, LV systolic function normal. No valve abnormalities Patient reports last echo within one year had EF of 40-45 improved from 20% Coreg 25 PO BID Demadex 40 PO Daily HTN Well controlled Amlodipine 10mg PO daily Coreg 25mg PO BID Apresoline 50mg PO BID Hyperlipidemia Zetia 10mg PO HS Palpitations [facility] report: SVT event in May (several seconds of a-tach) Troponin negative x 3 Tsh WNL Kenny Murch PGY-2 D/w Dr. Contreras
[2017-08-10 10:03] LABS: BANDS 2 % (0-2); LYMPHOCYTE 4 % (20-40); MONOCYTE 2 % (0-10); NEUTROPHIL 92 % (50-75); PLATELET ESTIMATE NORMAL (NORMAL); TOTAL CELLS COUNTED 100
[2017-08-10] MEDS ORDERED: ePHEDrine 50 mg/ml Inj ONE (11:34)
[2017-08-10] MEDS ORDERED: Etomidate 20 mg/10ml Inj IV ONE (11:34)
[2017-08-10] MEDS ORDERED: Midazolam 2 MG/2 ML VIAL ONE (11:49)
[2017-08-10] MEDS ORDERED: Propofol 10 mg/ml Inj (20 ML) ONE (12:04)
[2017-08-10 16:14] VITALS: BP 95/57; RESP 20; TEMP 97.9
--- NOTE | 2017-08-10 18:04 | CP.PCM.DIS ---
Provider - Provider Date of Admission: 08/07/17 11:37 Attending physician: Roel Baenrjee DO Consults: Cardio: Dr. Contreras GI: Dr. Melton Time Spent in preparation of Discharge (in minutes): 45 Diagnosis - Discharge Diagnosis (1) Palpitations Status: Resolved (2) AICD (automatic cardioverter/defibrillator) present Status: Chronic (3) Ulcerative colitis Status: Chronic Hospital Course - Lab Results Lab Results: Micro Results 08/08/17 00:20 Stool Ova and Parasite Concentrate Exam - Final 08/07/17 20:40 Blood-Venous Blood Culture - Preliminary NO GROWTH AFTER 48 HOURS 08/07/17 20:40 Blood-Venous Blood Culture - Preliminary NO GROWTH AFTER 48 HOURS Most Recent Lab Values WBC 24.1 K/uL (4.8-10.8) H 08/10/17 07:32 RBC 4.09 Mil/uL (4.40-5.90) L 08/10/17 07:32 Hgb 11.8 g/dL (12.0-18.0) L 08/10/17 07:32 Hct 35.5 % (35.0-51.0) 08/10/17 07:32 MCV 86.7 fL (80.0-94.0) 08/10/17 07:32 MCH 28.9 pg (27.0-31.0) 08/10/17 07:32 MCHC 33.3 g/dL (33.0-37.0) 08/10/17 07:32 RDW 13.9 % (11.5-14.5) 08/10/17 07:32 Plt Count 386 K/uL (130-400) 08/10/17 07:32 MPV 8.1 fL (7.2-11.7) 08/10/17 07:32 Neut % (Auto) 90.0 % (50.0-75.0) H 08/10/17 07:32 Lymph % (Auto) 6.6 % (20.0-40.0) L 08/10/17 07:32 [place] % (Auto) 3.3 % (0.0-10.0) 08/10/17 07:32 Eos % (Auto) 0.0 % (0.0-4.0) 08/10/17 07:32 Baso % (Auto) 0.1 % (0.0-2.0) 08/10/17 07:32 Neut # (Auto) 21.7 K/uL (1.8-7.0) H 08/10/17 07:32 Lymph # (Auto) 1.6 K/uL (1.0-4.3) 08/10/17 07:32 [place] # (Auto) 0.8 K/uL (0.0-0.8) 08/10/17 07:32 Eos # (Auto) 0.0 K/uL (0.0-0.7) 08/10/17 07:32 Baso # (Auto) 0.0 K/uL (0.0-0.2) 08/10/17 07:32 Neutrophils % (Manual) 92 % (50-75) H 08/10/17 07:32 Band Neutrophils % 2 % (0-2) 08/10/17 07:32 Lymphocytes % (Manual) 4 % (20-40) L 08/10/17 07:32 Monocytes % (Manual) 2 % (0-10) 08/10/17 07:32 Platelet Estimate Normal (NORMAL) 08/10/17 07:32 RBC Morphology Normal 08/10/17 07:32 ESR 91 mm/hr (0-15) H 08/08/17 12:56 PT 12.7 SECONDS (9.7-12.2) H 08/08/17 16:36 INR 1.1 08/08/17 16:36 APTT 32 SECONDS (21-34) 08/08/17 16:36 D-Dimer, Quantitative 238 ng/mlDDU (0-243) 08/07/17 05:03 Sodium 140 mmol/L (132-148) 08/10/17 07:32 Potassium 3.5 mmol/L (3.6-5.2) L 08/10/17 07:32 Chloride 99 mmol/L (98-107) 08/10/17 07:32 Carbon Dioxide 26 mmol/L (22-30) 08/10/17 07:32 Anion Gap 19 (10-20) 08/10/17 07:32 BUN 17 mg/dL (9-20) 08/10/17 07:32 Creatinine 1.0 mg/dL (0.8-1.5) 08/10/17 07:32 Est GFR ( Amer) > 60 08/10/17 07:32 Est GFR (Non-Af Amer) > 60 08/10/17 07:32 Random Glucose 120 mg/dL (75-110) H 08/10/17 07:32 Calcium 8.5 mg/dl (8.6-10.4) L 08/10/17 07:32 Phosphorus 4.7 mg/dL (2.5-4.5) H 08/10/17 07:32 Magnesium 2.3 mg/dL (1.6-2.3) 08/10/17 07:32 Total Bilirubin 0.6 mg/dL (0.2-1.3) 08/10/17 07:32 AST 50 U/L (17-59) 08/10/17 07:32 ALT 47 U/L (21-72) 08/10/17 07:32 Alkaline Phosphatase 83 U/L (38-126) 08/10/17 07:32 Total Creatine Kinase 71 U/L (55-170) 08/07/17 14:27 CK-MB (Mass) < 0.22 ng/mL (0.0-3.38) 08/07/17 14:27 Troponin I < 0.0120 ng/mL (0.00-0.120) 08/07/17 14:27 Total Protein 7.4 g/dL (6.3-8.3) 08/10/17 07:32 Albumin 3.7 g/dL (3.5-5.0) 08/10/17 07:32 Globulin 3.7 gm/dL (2.2-3.9) 08/10/17 07:32 Albumin/Globulin Ratio 1.0 (1.0-2.1) 08/10/17 07:32 Lipase 31 U/L (23-300) 08/07/17 08:34 Procalcitonin 0.28 NG/ML (0.19-0.49) 08/07/17 19:56 TSH 3rd Generation 0.90 mIU/L (0.46-4.68) 08/07/17 14:27 Urine Opiates Screen Negative (NEGATIVE) 08/07/17 05:03 Urine Methadone Screen Negative (NEGATIVE) 08/07/17 05:03 Ur Barbiturates Screen Negative (NEGATIVE) 08/07/17 05:03 Ur Phencyclidine Scrn Negative (NEGATIVE) 08/07/17 05:03 Ur Amphetamines Screen Negative (NEGATIVE) 08/07/17 05:03 U Benzodiazepines Scrn Negative (NEGATIVE) 08/07/17 05:03 U Oth Cocaine Metabols Negative (NEGATIVE) 08/07/17 05:03 U Cannabinoids Screen Negative (NEGATIVE) 08/07/17 05:03 C. difficile Ag & Toxin Negative (NEGATIVE) 08/07/17 22:30 - Hospital Course Hospital Course: "HPI: Patient is a 36M with a PMH of UC and HF with AICD who comes to the ED with a chief complaint of palpitations. States last night around 11 he started to feel palpitations and weakness so he came to the ED BIBA. He states that it feels like he is running but he is laying down. Nothing made it better or worse. Describes the feeling like his heart is racing. Denies any radiation. It has been constant since it started. He has not ever had a feeling like this in his chest. He is also complaining of nausea but he said he has this feeling often and after he has a BM he feels better. Today in the ED his nausea is improving and he had one episode of non bloody diarrhea. States that every time he goes to see his PMD and they check his blood it always has a WBC count of 20 since 2016. [employer] is a group at [facility]. See Dr. Melton for his UC." Cardiology was consulted, Dr. Contreras, to evaluate the patient. [employer] came to evaluate the pacemaker. [employer] scientific report showed SVT event in May (several seconds of a-tach), no recent events. Echo showed normal LV systolic function, normal chamber size, no significant valvular abnormality seen. Troponins negative x 3. TSH was within normal limits. Patient was continued on home medications for heart failure: Coreg 25 PO BID and Demadex 40 PO Daily. Patient was given Amlodipine 10mg PO daily, Coreg 25mg PO BID, Apresoline 50mg PO BID for hypertension. Patient was continued on Zetia for hyperlipidema. Patient stable as per cardiology and will need to follow up as an outpatient. Dr. Melton saw the patient for ulcerative colitis and diarrhea. Gallbladder ultrasound was negative. Abdomen/ pelvis CT showed hepatomegaly, distended unremarkable gallbladder, obstructive bowel gas pattern. Endoscopy and colonoscopy were done. Endoscopy showed LA grade B reflux esophagitis, small hiatus hernia, erythematous mucosa in the antrum (biopsied), erythematous mucosa in the prepyloric region of the stomach. Normal examined duodenum. Colonoscopy showed non bleeding external hemorrhoids. Congested mucosa in the descending colon which was biopsied and mild colonic spasm. Patient to follow up in 5 weeks with GI and have repeat colonoscopy in 3 years. Medications prescribed for hemorrhoids. Upon discharge patient feeling much better. Patient is eager to go home. This is a summary of the patient's hospital course, please see chart for full details. Discharge Exam - Additional Findings Additional findings: - Constitutional Appears: Non-toxic, No Acute Distress - Head Exam Head Exam: ATRAUMATIC, NORMAL INSPECTION, NORMOCEPHALIC - Eye Exam Eye Exam: EOMI, Normal appearance Pupil Exam: NORMAL ACCOMODATION - ENT Exam ENT Exam: Mucous Membranes Moist - Respiratory Exam Respiratory Exam: Clear to Ausculation Bilateral, NORMAL BREATHING PATTERN. absent: Rales, Rhonchi, Wheezes, Stridor - Cardiovascular Exam Cardiovascular Exam: REGULAR RHYTHM, RRR, +S1, +S2. absent: Murmur - GI/Abdominal Exam GI & Abdominal Exam: Soft, Tenderness, Normal Bowel Sounds. absent: Distended - Extremities Exam Extremities Exam: Full ROM, Normal Inspection. absent: Pedal Edema - Back Exam Back Exam: NORMAL INSPECTION - Neurological Exam Neurological Exam: Alert, Awake, Oriented x3 - Psychiatric Exam Psychiatric exam: Normal Affect, Normal Mood - Skin Skin Exam: Intact, Normal Color, Warm Discharge Plan - Discharge Medications Prescriptions: amLODIPine [Norvasc] 10 mg PO DAILY #30 tab Carvedilol [Coreg] 25 mg PO BID #60 tab Dicyclomine [Bentyl] 20 mg PO BID #140 tab Ezetimibe [Zetia] 10 mg PO DAILY #30 tab hydrALAZINE [Apresoline] 50 mg PO BID #60 tab Hydrocortisone/Pramoxine [Analpram Hc 2.5%-1% Crm Single] 60 gm RC BID #1 tub Torsemide [Demadex] 40 mg PO DAILY #30 tab - Follow Up Plan Condition: GOOD Disposition: HOME/ ROUTINE Instructions: Heart Failure, Adult (DC), Amlodipine, Carvedilol, Dicyclomine, Ezetimibe, Hydralazine, Pramoxine and Hydrocortisone, Torsemide, Heart Failure Exercise Guide, Gastric Outlet Obstruction, Adult, Hypertension (DC) Additional Instructions: Patient stable for discharge as per Dr. Gonzales. Patient to follow up with [facility]/ primary doctor within 2 weeks. Patient to follow up with Dr. Contreras within two weeks. Patient to follow up with Dr. Melton in 5 weeks and will need repeat colonoscopy in 3 years. Patient to take Bentyl 20mg po BID for 10 weeks and use Analpram HC cream for 10 weeks. Patient to continue home medications as prescribed. Referrals: [facility] [Provider Group] Jerrell Contreras MD [Staff Provider] - Pearl Melton [Staff Provider] -
[2017-08-10 18:07] VITALS: PULSE 87
== END 2017-08-10 18:03 | disposition home or self-care (01) | DRG 544 ==
LOC: C.ER 03:48 → C.9E 11:37 → C.5S 12:13
PROVIDERS: ADMIT Hospitalist; ATTEND Hospitalist
PROC: 0DB68ZX Excision of Stomach, Via Natural or Artificial Opening Endoscopic, Diagnostic (ICD-10-PCS; 2017-08-09)
PROC: 0DBM8ZX Excision of Descending Colon, Via Natural or Artificial Opening Endoscopic, Diagnostic (ICD-10-PCS; principal; 2017-08-10 11:40)
DX: R00.2 Palpitations (principal); I50.22 Chronic systolic (congestive) heart failure; I50.20 Unspecified systolic (congestive) heart failure; E87.6 Hypokalemia; I11.0 Hypertensive heart disease with heart failure; I42.8 Other cardiomyopathies; K31.1 Adult hypertrophic pyloric stenosis; G43.909 Migraine, unspecified, not intractable, without status migrainosus; K21.0 Gastro-esophageal reflux disease with esophagitis; Z95.0 Presence of cardiac pacemaker; Z87.891 Personal history of nicotine dependence; K51.90 Ulcerative colitis, unspecified, without complications; K64.4 Residual hemorrhoidal skin tags; K58.0 Irritable bowel syndrome with diarrhea; Z95.810 Presence of automatic (implantable) cardiac defibrillator

== ENCOUNTER 2018-02-20 20:52 | Emergency (ER) | payer OTHER ==
[2018-02-20 21:18] VITALS: RESP 20
[2018-02-20] MEDS ORDERED: Sodium Chloride 0.9% 500 ML IV ONE (21:24)
--- NOTE | 2018-02-20 21:29 | C.PDOC ---
History Of Present Illness 37 year old male, whose past medical history includes AICD, pacemaker and defibrillator, presents to the ED for evaluation of abdominal pain and chest pain for the last 2 days. Patient also reports dizziness. He denies fever, chills. Time Seen by Provider: 02/20/18 20:56 Chief Complaint (Nursing): Chest Pain History Per: Patient History/Exam Limitations: no limitations Onset/Duration Of Symptoms: Days (2) Current Symptoms Are (Timing): Still Present Quality: "Pain" Additional History Per: Patient Past Medical History Reviewed: Historical Data, Nursing Documentation, Vital Signs Vital Signs: Last Vital Signs Temp 97.9 F 02/20/18 21:08 Pulse 103 H 02/20/18 21:08 Resp 20 02/20/18 21:08 BP 125/78 02/20/18 21:08 Pulse Ox 95 02/20/18 21:08 - Medical History PMH: CHF (s/p AICD implant), Crohn's Disease, HTN, Migraine Denies: Chronic Kidney Disease Surgical History: Endoscopy, Pacemaker - [facility] Procedures EXCISION OF DESCENDING COLON, ENDO, DIAGN (08/07/17) EXCISION OF STOMACH, ENDO, DIAGN (08/07/17) Family History: States: Unknown Family Hx - Social History Hx Tobacco Use: Yes Hx Alcohol Use: No Hx Substance Use: No - Immunization History Hx Tetanus Toxoid Vaccination: No Hx Influenza Vaccination: No Hx Pneumococcal Vaccination: No Review Of Systems Constitutional: Negative for: Fever, Chills Cardiovascular: Positive for: Chest Pain Gastrointestinal: Positive for: Abdominal Pain Neurological: Positive for: Dizziness Physical Exam - Physical Exam Appears: Non-toxic, No Acute Distress Skin: Normal Color, Warm, Dry Head: Atraumatic, Normacephalic Eye(s): bilateral: Normal Inspection Oral Mucosa: Moist Chest: Symmetrical, No Deformity, No Tenderness Cardiovascular: Rhythm Regular, No Murmur Respiratory: Normal Breath Sounds, No Rales, No Rhonchi, No Wheezing Gastrointestinal/Abdominal: Soft, Tenderness (epigastric ), No Guarding, No Rebound Extremity: Normal ROM, Capillary Refill (less than 2 seconds ) Neurological/Psych: Oriented x3, Normal Speech, Normal Cognition ED Course And Treatment - Laboratory Results Result Diagrams: 02/20/18 21:29 02/20/18 21:29 O2 Sat by Pulse Oximetry: 95 (on RA) Pulse Ox Interpretation: Normal Medical Decision Making Medical Decision Making: ro coltiis gastritis pud, acs Progress: Bloodwork, urinalysis, CXR, EKG ordered and reviewed. Protonix IVP, Zofran IVP, and IV Fluids given. ekg sinus tach [address] t wavce changes pt in er with with GI symptoms noted leukocytosis. baseline. cxr neg as carroll d byme. pain improved. empric antibiotics initiated. advise outpt fu. pt asking discharge Disposition - Disposition Referrals: [facility] [Outside] [facility] [Outside] Hugo Atwood MD [Staff Provider] - Disposition: HOME/ ROUTINE Disposition Time: 12:00 Condition: STABLE Additional Instructions: return to er with worsening symptoms or concerns. Prescriptions: Ciprofloxacin [Cipro] 500 mg PO BID #14 tab Famotidine [Pepcid] 20 mg PO DAILY #20 tab metroNIDAZOLE [Flagyl] 500 mg PO TID #21 tab Instructions: Chest Pain, Acute Abdomen (Belly Pain), White Blood Cell Count Differential Test Forms: [employer] (Upper Sorbian) - Clinical Impression Clinical Impression: Chest discomfort, Abdominal pain - Scribe Statement The provider has reviewed the documentation as recorded by the Scribe (Christiane Foreman) Provider Attestation: All medical record entries made by the Scribe were at my direction and personally dictated by me. I have reviewed the chart and agree that the record accurately reflects my personal performance of the history, physical exam, medical decision making, and the department course for this patient. I have also personally directed, reviewed, and agree with the discharge instructions and disposition.
[2018-02-20 21:32] LABS: BASO % 0.2 % (0.0-2.0); EOS # 0.1 K/uL (0.0-0.7); EOS % 0.5 % (0.0-4.0); HEMOGLOBIN 13.9 g/dL (12.0-18.0); LYMPH # 0.7 K/uL (1.0-4.3); LYMPH % 3.7 % (20.0-40.0); MEAN CELL VOLUME 84.5 fL (80.0-94.0); MEAN CORPUSCULAR HEMOGLOBIN 28.2 pg (27.0-31.0); MEAN CORPUSCULAR HGB CONC 33.3 g/dL (33.0-37.0); MEAN PLATELET VOLUME 8.4 fL (7.2-11.7); MONO # 0.8 K/uL (0.0-0.8); MONO % 4.2 % (0.0-10.0); NEUT # 16.9 K/uL (1.8-7.0); NEUT % 91.4 % (50.0-75.0); PLATELET COUNT 368 K/uL (130-400); RBC 4.95 Mil/uL (4.40-5.90); RED CELL DISTRIBUTION WIDTH 14.3 % (11.5-14.5); WHITE BLOOD COUNT 18.5 K/uL (4.8-10.8)
[2018-02-20] MEDS ORDERED: Sodium Chloride 0.9% 1,000 ML ONE (21:33)
[2018-02-20 21:42] LABS: INR 1.1; PROTHROMBIN TIME 12.5 SECONDS (9.7-12.2)
[2018-02-20 21:44] LABS: BLOOD UREA NITROGEN 17 mg/dL (9-20); CALCIUM 9.2 mg/dl (8.6-10.4); GFR NON-AFRICAN AMERICAN > 60; LIPASE 39 U/L (23-300)
[2018-02-20 21:47] LABS: ALB/GLOB RATIO 1.1 (1.0-2.1); ALBUMIN 4.7 g/dL (3.5-5.0); ALT/SGPT 33 U/L (21-72); AST/SGOT 42 U/L (17-59)
[2018-02-20 21:55] LABS: B-TYPE NATRIURETIC PEPTIDE 31.5 pg/mL (0-450)
[2018-02-20 22:00] LABS: BANDS 4 % (0-2); LYMPHOCYTE 6 % (20-40); MONOCYTE 4 % (0-10); NEUTROPHIL 86 % (50-75); PLATELET ESTIMATE NORMAL (NORMAL); TOTAL CELLS COUNTED 100
[2018-02-20] MEDS ORDERED: Iodixanol 320 MG/ML 100 ML BOTTLE IV ONE (22:05)
[2018-02-21 00:37] VITALS: BP 130/72; PULSE 78; TEMP 98
--- NOTE | 2018-02-21 07:49 | RAD ---
Date of service: 02/20/2018 PROCEDURE: CHEST RADIOGRAPH, 1 VIEW HISTORY: chest pain COMPARISON: 08/07/2017 FINDINGS: LUNGS: Clear. Shallow lung volumes PLEURA: No pneumothorax or pleural fluid seen. CARDIOVASCULAR: There is absence of aortic atherosclerotic calcification on x-ray. Top-normal heart size. No appearing pulmonary venous congestion. Position/ configuration of pacemaker OSSEOUS STRUCTURES: No significant abnormalities. VISUALIZED UPPER ABDOMEN: Normal. OTHER FINDINGS: None. IMPRESSION: No active disease.
--- NOTE | 2018-02-21 10:13 | CT ---
Date of service: 02/20/2018 PROCEDURE: CT Abdomen and Pelvis with contrast HISTORY: upper abd pain COMPARISON: 08/07/2017 TECHNIQUE: Contrast dose: 100 mL Visipaque 320 Radiation dose: Total exam DLP = 1167.86 mGy-cm. This CT exam was performed using one or more of the following dose reduction techniques: Automated exposure control, adjustment of the mA and/or kV according to patient size, and/or use of iterative reconstruction technique. FINDINGS: LOWER THORAX: Bibasilar dependent subpleural mild fibrosis. Asymmetrical triangular shaped pleural based opacity borders fibrotic changes. Within this tiny cystic spaces here some minimal bronchiectasis is a consideration (axial series 5, image 11 and 12. Findings present previous but slightly more conspicuous now. Postinflammatory change is believe most likely. Cardiomegaly. No pericardial effusion. Pacemaker device in place. LIVER: Diffuse hepatic steatosis-similar No gross lesion or ductal dilatation. GALLBLADDER AND BILE DUCTS: Unremarkable. PANCREAS: Unremarkable. No gross lesion or ductal dilatation. SPLEEN: Unremarkable. ADRENALS: Unremarkable. No mass. KIDNEYS AND URETERS: Unremarkable. No hydronephrosis. No solid mass. VASCULATURE: Unremarkable. No aortic aneurysm. No aortic atherosclerotic calcification or mural plaque present. BOWEL: Unremarkable. No obstruction. No gross colonic mural thickening. No current prominent fluid containing bowel loops present there is some fluid in the small bowel loops but the vast majority small-bowel loops do not appear particularly distended. The most pronounced fluid-filled loops in left upper abdomen are a 2.6 cm in maximum width. This a small bowel loop all may have minimal mural thickening. APPENDIX: Normal appendix. PERITONEUM: Unremarkable. No free fluid. No free air. LYMPH NODES: Unremarkable. No enlarged lymph nodes. BLADDER: Unremarkable. REPRODUCTIVE: Unremarkable. BONES: No acute fracture. OTHER FINDINGS: Stomach much less distended than before. IMPRESSION: Currently no large bowel obstruction or significant colonic fluid present. Nonspecific fluid in the small bowel loops. These are not particularly distended. The small bowel wall thickness is borderline prominent-a mild nonspecific enteritis can simulate this. No small bowel obstruction suggested. Stomach is currently much less distended. Hepatic steatosis. The liver size midclavicular line is probably top-normal. Concordant results (preliminary interpretation) provided by [employer].
--- NOTE | 2018-02-21 17:03 | CARD ---
APPROVED REPORT Date of service: 02/20/2018 EKG Measurement Heart [id number] <Conclusion> Sinus tachycardia Ventricular pacing Abnormal ECG
[2018-02-22 10:12] VITALS: O2SAT 95
== END 2018-02-21 00:36 | disposition home or self-care (01) ==
LOC: C.ER 20:52
DX: R07.9 Chest pain, unspecified (principal); R10.9 Unspecified abdominal pain; I11.0 Hypertensive heart disease with heart failure; I50.9 Heart failure, unspecified; K50.90 Crohn's disease, unspecified, without complications; Z95.810 Presence of automatic (implantable) cardiac defibrillator; Z87.891 Personal history of nicotine dependence
CPT/HCPCS: 71045; 74177; 80053; 83690; 83880; 84484; 85025; 85610; 85730; 93005; 96361; 96374; 96375; 99283; C9113; J2405; J7040; Q9967

== ENCOUNTER 2018-08-29 20:59 | Emergency (ER) | payer OTHER ==
[2018-08-29 21:10] VITALS: BP 101/67; PULSE 102; RESP 20; TEMP 98.7; O2SAT 96
--- NOTE | 2018-08-29 21:47 | C.PDOC ---
History Of Present Illness 37 year old male presents to ED with complaint of pain to the left thigh since last night. Patient states that he felt a "lump" to his left thigh and burning sensation. He states that he feel pain with walking. Patient had gastric sleeve surgery on 08/14/18. Patient denies taking any medication for pain. He denies fever, chills, weakness, or numbness. Time Seen by Provider: 08/29/18 21:15 Chief Complaint (Nursing): Lower Extremity Problem/Injury History Per: Patient History/Exam Limitations: no limitations Onset/Duration Of Symptoms: Days (1) Current Symptoms Are (Timing): Still Present Past Medical History Reviewed: Historical Data, Nursing Documentation, Vital Signs Vital Signs: Last Vital Signs Temp 98.7 F 08/29/18 21:07 Pulse 102 H 08/29/18 21:07 Resp 20 08/29/18 21:07 BP 101/67 08/29/18 21:07 Pulse Ox 96 08/29/18 21:07 Primary Care Provider: Non [facility] Provider, - Medical History PMH: CHF (s/p AICD implant), Crohn's Disease, HTN, Migraine Denies: Chronic Kidney Disease Surgical History: Endoscopy, Pacemaker - [facility] Procedures EXCISION OF DESCENDING COLON, ENDO, DIAGN (08/07/17) EXCISION OF STOMACH, ENDO, DIAGN (08/07/17) Family History: States: Unknown Family Hx - Social History Hx Tobacco Use: Yes Hx Alcohol Use: No Hx Substance Use: No - Immunization History Hx Tetanus Toxoid Vaccination: No Hx Influenza Vaccination: No Hx Pneumococcal Vaccination: No Review Of Systems Constitutional: Negative for: Fever, Chills, Weakness Musculoskeletal: Positive for: Leg Pain ("lump" to the left thigh, burning pain ) Skin: Negative for: Rash Neurological: Negative for: Weakness, Numbness Physical Exam - Physical Exam Appears: Well, Non-toxic, No Acute Distress Skin: Normal Color, Warm, Dry, No Rash, No Ecchymosis Head: Atraumatic, Normacephalic Eye(s): bilateral: Normal Inspection, PERRL, EOMI Oral Mucosa: Moist Neck: Normal ROM, Supple Chest: Symmetrical, No Deformity Cardiovascular: Rhythm Regular, No Murmur Respiratory: Normal Breath Sounds, No Rales, No Rhonchi, No Wheezing Gastrointestinal/Abdominal: Soft, No Tenderness Back: No CVA Tenderness, No Vertebral Tenderness, No Paraspinal Tenderness Extremity: Normal ROM, Tenderness (localized tenderness to posterior left upper thigh. No mass or induration felt. No erythema or swelling), Capillary Refill (<2 seconds), No Swelling Pulses: Left Femoral: Normal, Right Femoral: Normal Neurological/Psych: Oriented x3, Normal Speech, Normal Cognition, Normal Motor, Normal Sensation Gait: Steady ED Course And Treatment O2 Sat by Pulse Oximetry: 96 (in RA) Pulse Ox Interpretation: Normal Medical Decision Making Medical Decision Making: Initial Plan: Cleocin Tramadol Area could be a muscle spasm vs. early abscess/ Disposition - Disposition Referrals: [facility] [Outside] Disposition: HOME/ ROUTINE Disposition Time: 22:32 Condition: STABLE Additional Instructions: apply warm compresses 3-4 times a day. Return in 1-2 days if worsened for possible I&D Prescriptions: Acetaminophen [Tylenol] 325 mg PO Q6 PRN #30 tab PRN Reason: Pain, Mild (1-3) Clindamycin [Cleocin] 300 mg PO TID #30 cap traMADol [Ultram] 50 mg PO Q6 PRN #20 tab PRN Reason: Pain Instructions: Boil Forms: [employer] (Lux[place]bourgish) - Clinical Impression Clinical Impression: Abscess - PA / HOME HEALTH CLINICIAN / Resident Statement MD/DO has reviewed & agrees with the documentation as recorded. (Mar Carbone) - Scribe Statement The provider has reviewed the documentation as recorded by the Scribe (Mar Carbone) All medical record entries made by the Scribe were at my direction and personally dictated by me. I have reviewed the chart and agree that the record accurately reflects my personal performance of the history, physical exam, medical decision making, and the department course for this patient. I have also personally directed, reviewed, and agree with the discharge instructions and disposition.
== END 2018-08-29 22:44 | disposition home or self-care (01) ==
LOC: C.ER 20:59
DX: L02.416 Cutaneous abscess of left lower limb (principal)